=== PATIENT | male | born 1965 | race Caucasian/White ===

== ENCOUNTER 2017-05-28 14:02 | Inpatient (IN) | payer OTHER, SELFPAY ==
[2017-05-28] VITALS (19 sets, daily range): BP systolic 91–190; BP diastolic 53–118; PULSE 74–112; RESP 18–24; TEMP 36.7–37; O2SAT 92–99; BMI 26.6; BMI 28.0
--- NOTE | 2017-05-28 14:15 | XR_ITS ---
XR chest 2V PA and lateral chest CXR Ordering Physician: Tomas Schwartz MD Patient Age: 51 years: Male HISTORY: ITS.REASON: chest pain Chest pain. Headaches. TECHNIQUE: PA lateral chest COMPARISON :10/17/2007 CXR FINDINGS Diffuse interstitial edema/ infiltrate with interstitial thickens septal lines. malina B lines Suspect this reflects CHF. Appearance Could be due to acute IN as the heart is normal in size.. Also I would expect to see slightly greater cephalization of pulmonary vascular congestion that we do. Requires correlation with clinical picture. It difficult to fully exclude a diffuse interstitial infiltrate or pneumonitis alternatively.. Other is also a prominent right daria compared to prior studies but is most likely reflects the active process. Subtle blunting the posterior sulcus likely reflecting small developing pleural effusions. IMPRESSION- Diffuse interstitial infiltrate bilaterally and with septal lines. Appearance most likely reflecting interstitial pulmonary edema/due to acute CHF... Correlation required Asymmetric Fullness of the right daria with additional infiltrate seen right daria into the RML. Follow-up chest film important to exclude any additional process or lesion here..
[2017-05-28 14:26] LABS: Basophils % 0.3 % (0.1-2.0); Eosinophils # 0.3 K/mm3 (0.0-0.4); Eosinophils % 2.3 % (0.1-12.0); Hematocrit 46.7 % (42.0-52.0); Hemoglobin 15.2 g/dL (14.1-18.0); Lymphocytes # 2.1 K/mm3 (0.7-4.5); Lymphocytes % 15.4 K/mm3 (10-50); Mean Corpuscular HGB Conc 32.6 g/dL (31.8-35.4); Mean Corpuscular Volume 94.9 fl (80-94); Mean Platelet Volume 8.1 fl (7.4-10.4); Monocytes # 0.6 K/mm3 (0.1-1.0); Monocytes % 4.5 % (1.7-9.3); Neutrophils # 10.3 K/mm3 (1.8-7.8); Neutrophils % 77.5 % (37.0-80.0); Platelet Count 258 K/mm3 (142-424); Red Blood Count 4.92 M/mm3 (4.60-6.20); Red Cell Distribution Width 12.9 % (11.5-17.5); White Blood Count 13.3 K/mm3 (4.8-10.8)
[2017-05-28 14:34] LABS: Alanine Aminotransferase 22 U/L (12-78); Albumin Level 3.3 gm/dL (3.4-5.0); Albumin/Globulin Ratio 0.7 (1.1-1.8); Alkaline Phosphatase 89 U/L (46-116); Anion Gap 13.1 mEq/L (5-15); Aspartate Amino Transferase 28 U/L (15-37); Bilirubin,Total 0.5 mg/dL (0.2-1.0); Blood Urea Nitrogen 17 mg/dL (7-18); Calcium 8.8 mg/dL (8.5-10.1); Carbon Dioxide 28 mmol/L (21.0-32.0); Chloride 102 mmol/L (98-107); Creatinine Clearance Estimated 94 mg/ml (0-300); Creatinine,Serum 1.08 mg/dL (0.70-1.30); Estimated Glomerular Filt Rate > 60 ml/min (>60); GFR (African American) > 60 ML/MIN (>60); Globulin 4.5 gm/dl (1.3-3.2); Glucose 106 mg/dL (74-106); Potassium 4.1 mmoL/L (3.5-5.1); Sodium 139 mmol/L (136-145); Total Protein,Serum 7.8 gm/dL (6.4-8.2)
[2017-05-28 14:50] LABS: Troponin I 2.31 ng/ml (0.00-0.06)
--- NOTE | 2017-05-28 14:50 | PC.NURSE ---
LAB CALLED WITH CRITICAL TROPONIN OF 2.3, NOTIFIED
--- NOTE | 2017-05-28 14:56 | HMH.EDCP ---
ED Disposition Clinical Impression: ST elevation myocardial infarction (STEMI) Qualifiers: Involved coronary artery: LAD coronary artery Qualified Code(s): I21.02 - ST elevation (STEMI) myocardial infarction involving left anterior descending coronary artery Disposition: Admitted As Inpatient Condition on Discharge: Good - Critical Care Critical Care Time: No Attestation: On 05/28/17, the high probability of a clinically significant, sudden or life threatening deterioration of the following system(s) required my full and direct attention, intervention and personal management. The time I documented below is in addition to time spent performing reported procedures but includes the following listed in this critical care notation. Medical Decision Making Vital Signs: 05/28/17 14:05 Pulse Rate [Brachial] 112 H Respiratory Rate 22 Blood Pressure [Right Arm] 159/106 Blood Pressure Mean [Right Arm] 123 Blood Pressure Source [Right Arm] Automatic Cuff Blood Pressure Position [Right Arm] Supine 02 Sat by Pulse Oximetry 98 Oxygen Delivery Method Room Air - Lab Data Lab results reviewed: Yes: I reviewed the patient's lab results. Result diagrams: 05/28/17 14:10 05/28/17 14:10 Orders (Tests/Meds): ED MEDICATIONS Generic Name Dose Route Start Last Admin Trade Name Freq PRN Reason Stop Dose Admin Aspirin 81 mg 05/29/17 09:00 Aspirin 81mg Enteric Coated Tablet PO 06/28/17 08:59 DAILY TAWANA Atorvastatin Calcium 80 mg 05/28/17 21:00 Lipitor 40mg Tablet PO 06/27/17 20:59 HS TAWANA Diphenhydramine HCl 50 mg 05/28/17 17:22 05/28/17 17:28 Benadryl 50mg/1ml Vial IV 05/28/17 17:23 50 mg ONCE ONE Administration Fentanyl Citrate 50 mcg 05/28/17 17:22 05/28/17 17:29 Fentanyl 100mcg/2ml Vial IV 05/29/17 17:22 175 mcg Q3MINP PRN Administration Moderate to Severe Pain Fentanyl Citrate 25 mcg 05/28/17 17:22 Fentanyl 100mcg/2ml Vial IV 05/29/17 17:22 Q3MINP PRN Moderate to Severe Pain Flumazenil 0.2 mg 05/28/17 17:22 Romazicon 0.1mg/Ml 5ml Vial IV 05/28/17 23:00 NEEDED PRN Sedation Heparin Sodium (Porcine) 5,000 unit 05/28/17 17:22 05/28/17 17:32 Heparin Sodium 5,000 Units/Ml Vial IV 05/29/17 17:22 5,000 unit NEEDED PRN Administration Emergency Box Adjuster Leader Heparin Sodium/Sodium Chloride 3,000 unit 05/28/17 17:22 05/28/17 17:29 Heparin 1000 Units/500ml Ns (Director Of Distribution) IV 05/28/17 17:23 3,000 unit ONCE ONE Administration Iopamidol 280 ml 05/28/17 17:22 05/28/17 17:24 [id number]; 100ml Vial IV 05/28/17 17:23 280 ml ONCE ONE Administration Lidocaine HCl 10 ml 05/28/17 17:34 Lidocaine 1% 10ml Mdv SQ 05/28/17 17:35 ONCE ONE Midazolam HCl 1 mg 05/28/17 17:22 05/28/17 17:30 Midazolam 2mg/2ml Vial IV 05/29/17 17:22 9 mg Q3MINP PRN Administration Sedation Naloxone HCl 0.4 mg 05/28/17 17:22 Narcan 0.4mg/Ml Vial IV 05/29/17 17:22 Q5MINP PRN Decreased respirations Nitroglycerin 800 mcg 05/28/17 17:22 05/28/17 17:30 Nitroglycerin 800mcg/8ml Syr (Director Of Distribution) IV 05/29/17 17:22 800 mcg NEEDED PRN Administration Emergency Box Adjuster Leader Promethazine HCl 25 mg 05/28/17 17:34 05/28/17 17:41 Phenergan 25mg/Ml 1ml Vial IV 05/28/17 17:35 25 mg ONCE ONE Administration Sodium Chloride 10 ml 05/28/17 14:15 Saline Flush 10ml Syringe IV 06/27/17 14:14 NEEDED PRN Maintain IV Site Sodium Chloride 10 ml 05/28/17 17:22 Saline Flush 10ml Syringe IV 06/27/17 17:21 NEEDED PRN Maintain IV Site Sodium Chloride 25 ml 05/28/17 17:34 Sod Chloride 0.9% 25ml Bag IV 05/28/17 17:35 ONCE ONE Ticagrelor 90 mg 05/28/17 21:00 Brilinta 90mg Tablet PO 06/27/17 20:59 BID TAWANA Verapamil HCl 5 mg 05/28/17 17:22 05/28/17 17:29 Verapamil 2.5mg/Ml 2ml Vial IV 05/28/17 17
--- NOTE | 2017-05-28 15:02 | PC.NURSE ---
EKG sent to Dr. Bradshaw at this time
--- NOTE | 2017-05-28 15:03 | ED_ITS ---
ED Disposition Clinical Impression: ST elevation myocardial infarction (STEMI) Qualifiers: Involved coronary artery: LAD coronary artery Qualified Code(s): I21.02 - ST elevation (STEMI) myocardial infarction involving left anterior descending coronary artery Disposition: Admitted As Inpatient Condition on Discharge: Good - Critical Care Critical Care Time: No Attestation: On 05/28/17, the high probability of a clinically significant, sudden or life threatening deterioration of the following system(s) required my full and direct attention, intervention and personal management. The time I documented below is in addition to time spent performing reported procedures but includes the following listed in this critical care notation. Medical Decision Making Vital Signs: 05/28/17 14:05 Pulse Rate [Brachial] 112 H Respiratory Rate 22 Blood Pressure [Right Arm] 159/106 Blood Pressure Mean [Right Arm] 123 Blood Pressure Source [Right Arm] Automatic Cuff Blood Pressure Position [Right Arm] Supine 02 Sat by Pulse Oximetry 98 Oxygen Delivery Method Room Air - Lab Data Lab results reviewed: Yes: I reviewed the patient's lab results. Result diagrams: 05/28/17 14:10 05/28/17 14:10 Orders (Tests/Meds): ED MEDICATIONS Generic Name Dose Route Start Last Admin Trade Name Freq PRN Reason Stop Dose Admin Aspirin 81 mg 05/29/17 09:00 Aspirin 81mg Enteric Coated Tablet PO 06/28/17 08:59 DAILY TAWANA Atorvastatin Calcium 80 mg 05/28/17 21:00 Lipitor 40mg Tablet PO 06/27/17 20:59 HS TAWANA Diphenhydramine HCl 50 mg 05/28/17 17:22 05/28/17 17:28 Benadryl 50mg/1ml Vial IV 05/28/17 17:23 50 mg ONCE ONE Administration Fentanyl Citrate 50 mcg 05/28/17 17:22 05/28/17 17:29 Fentanyl 100mcg/2ml Vial IV 05/29/17 17:22 175 mcg Q3MINP PRN Administration Moderate to Severe Pain Fentanyl Citrate 25 mcg 05/28/17 17:22 Fentanyl 100mcg/2ml Vial IV 05/29/17 17:22 Q3MINP PRN Moderate to Severe Pain Flumazenil 0.2 mg 05/28/17 17:22 Romazicon 0.1mg/Ml 5ml Vial IV 05/28/17 23:00 NEEDED PRN Sedation Heparin Sodium (Porcine) 5,000 unit 05/28/17 17:22 05/28/17 17:32 Heparin Sodium 5,000 Units/Ml Vial IV 05/29/17 17:22 5,000 unit NEEDED PRN Administration Emergency Box Scoop Filler Heparin Sodium/Sodium Chloride 3,000 unit 05/28/17 17:22 05/28/17 17:29 Heparin 1000 Units/500ml Ns (Environmental Science Technician) IV 05/28/17 17:23 3,000 unit ONCE ONE Administration Iopamidol 280 ml 05/28/17 17:22 05/28/17 17:24 [id number]; 100ml Vial IV 05/28/17 17:23 280 ml ONCE ONE Administration Lidocaine HCl 10 ml 05/28/17 17:34 Lidocaine 1% 10ml Mdv SQ 05/28/17 17:35 ONCE ONE Midazolam HCl 1 mg 05/28/17 17:22 05/28/17 17:30 Midazolam 2mg/2ml Vial IV 05/29/17 17:22 9 mg Q3MINP PRN Administration Sedation Naloxone HCl 0.4 mg 05/28/17 17:22 Narcan 0.4mg/Ml Vial IV 05/29/17 17:22 Q5MINP PRN Decreased respirations Nitroglycerin 800 mcg 05/28/17 17:22 05/28/17 17:30 Nitroglycerin 800mcg/8ml Syr (Environmental Science Technician) IV 05/29/17 17:22 800 mcg NEEDED PRN Admin
--- NOTE | 2017-05-28 15:14 | PC.NURSE ---
SPOKE WITH . HE ADVISED TO NOTIFY PHARMACEUTICAL SALES. MIRACLE CORTES HAD PHARMACEUTICAL SALES PAGED
--- NOTE | 2017-05-28 15:26 | PC.NURSE ---
SPOKE WITH AND CONFIRMED MEDICINE
--- NOTE | 2017-05-28 15:38 | IR_ITS ---
CARDIAC CATHETERIZATION DATE OF CATHETERIZATION:05/28/2017 3:41 PM PROCEDURES: 1. Left heart catheterization 2. Left ventriculogram 3. Selective coronary angiogram 4. Drug-eluting stent deployment to the proximal and mid LAD 5. Drug-eluting stent deployment to the first diagonal artery 6. Drug-eluting stent deployment to the proximal and mid circumflex artery 7. Drug-eluting stent deployment to the proximal mid and distal dominant right coronary artery INDICATION FOR TEST: 1. Acute anterior ST elevation myocardial infarction 2. Cardiogenic shock 3. Multivessel coronary artery disease Informed consent was obtained prior to the procedure. COMPLICATIONS: None ESTIMATED BLOOD LOSS: Less than 10 ml. TECHNIQUE: One percent lidocaine used to anesthetize the right anterior aspect of the wrist. The right radial artery was accessed via the Seldinger technique. A 6 Tajik sheath was placed in the right radial artery. 2.5 mg of verapamil, 800 mcg of nitroglycerin and 5000 U Heparin were given through the arterial sheath. An Ikari right guide catheter was used intubate the right coronary artery and angiography was performed. Initially a choice PT wire was used to traverse the occlusion however after several seconds and attempts it was felt this was probably a chronic occlusion. Because of this an Ikari left guide catheter was quickly inserted into the left main artery and a choice PT wire was placed into the distal LAD. A 2 mm x 12 mm balloon was deployed in the proximal to mid LAD opening the subtotal occlusion. Following this a 2.5 x 22 mm resolute [place] stent was deployed at 22 brian reducing the stenosis to 0%. An additional wire was placed into the circumflex artery and a 2.5 x 26 mm resolute Garrett stent was deployed in the proximal to mid circumflex artery at 20 brian reducing the stenosis. A 2.5 x 6 mm noncompliant balloon was placed proximally and deployed at 22 brian on 2 occasions to post dilate. The choice PT wire in the LAD was pulled back and placed into the first diagonal artery were a 2 mm x 15 mm balloon was used to open the struts going in the large first diagonal artery. Following this a 2.25 x 38 mm resolute [place] stent was deployed at the ostium mid and distal segment at 18 brian reducing the stenoses to less than 10%. DAISHA I was present down both the LAD and diagonal artery before the procedure with DAISHA-3 flow down both vessels after the procedure. An additional 3 mm x 12 mm resolute [place] stent was in placed in the proximal LAD and deployed at 20 brian reducing the stenosis to 0%. After achieving excellent angiographic results with DAISHA-3 flow down the circumflex artery before and after the procedure the guide catheter was used intubate the right coronary artery. A fresh choice PT extra-support wire was placed proximally and a 2 mm x 12 mm balloon was used to push through the chronic occlusion. The balloon was deployed at 20 brian on 2 occasions. This restored DAISHA-3 flow from the right coronary artery which was initially DAISHA 0 flow. 2. 3 mm x 38 mm resolute Garrett stents were placed in the proximal mid and distal segment in a contiguous manner and deployed distally at 18 brian and then proximally at 20 brian. Excellent angiographic results were obtained. Patient initially received Brilinta in the emergency department. He received 9000 units of heparin in the emergency department as well as an additional 3000 units in the Set O Type Operator followed by an additional 3000 units of heparin. Measured ACT is were 274 seconds and then 239 seconds. 3000 units of heparin was administered after the 239 seconds ACT ANGIOGRAPHIC RESULTS: 1. The left main artery has an ostial 20% stenosis mid vessel 20% stenosis 2. The left anterior descending artery has proximal 60-70% stenosis and then a 99% subtotally o
--- NOTE | 2017-05-28 15:48 | PC.NURSE ---
SECOND EKG PERFORMED AND SENT TO DR. DEL CASTILLO. STEMI DECLARED PER ABUNDIO.
[2017-05-28 17:18] LABS: CATHL Activated Clotting Time 239 SEC (74-125)
[2017-05-28 17:20] LABS: CATHL Activated Clotting Time 274 SEC (74-125)
--- NOTE | 2017-05-28 18:36 | SUR.PHASEII ---
Addendum entered by Marizol Gayle RN 05/28/17 18:37: Original Note: REPORT GIVEN TO BARBARA MACIAS RN TRANSPORTED TO ICU VIA STRETCHER, VSS WITH NO C/O PAIN AT THIS TIME.
--- NOTE | 2017-05-28 22:38 | PC.NURSE ---
athletic monitor NV-0.16 QRS-0.08 QT-0.36 [address] AV BLOCK
[2017-05-29] VITALS (11 sets, daily range): BP systolic 97–117; BP diastolic 58–87; PULSE 75–91; RESP 18–22; TEMP 36.5–36.8; O2SAT 94–99
--- NOTE | 2017-05-29 00:37 | PC.NURSE ---
DONATION WORKER NJ-0.16 QRS-0.08 QT-0.36 PULSE 80 NSR
--- NOTE | 2017-05-29 01:34 | PC.NURSE ---
PT IS A&OX3. HE RECEIVED PRN MEDICATION FOR REPORTS OF CHEST TIGHTNESS AND SOA. HE IS RECEIVING O2 @ 2LPM N/C. HE IS S/P HEART CATH WITH RIGHT RADIAL DSG THAT IS C/D/I. VSS. CONTINUING TO MONITOR.
--- NOTE | 2017-05-29 04:32 | PC.NURSE ---
PT HAVING A LOT OF ANXIETY AND SHORTNESS OF BREATH,S.TETO,RN NOTIFIED AND ORDERS RECIEVED FOR LASIX 40MG IV ONE TIME ONLY AND MORPHINE 5MG IV EVERY 1 HOUR PRN ANXIETY OR SOB,ORDERS REPEATED AND VERIFIED
--- NOTE | 2017-05-29 08:22 | HMH.PHAVTE ---
[facility] Pharm[facility] VTE Monitoring - Patient Demographics Admission date: 05/29/17 Report Date: 05/29/17 Time: 08:22 Allergies/Adverse Reactions: hydrocodone [HYDROCODONE] Allergy (Unknown, Unverified 05/15/17 14:48) Height: 1.78 m Weight: 88.507 kg Patient Problems: Current Active Problems ST elevation myocardial infarction (STEMI) (Acute) - VTE Risk Labs: VTE Related Lab Results Hgb 15.2 g/dL (14.1-18.0) 05/28/17 14:10 Hct 46.7 % (42.0-52.0) 05/28/17 14:10 Plt Count 258 K/mm3 (142-424) 05/28/17 14:10 BUN 17 mg/dL (7-18) 05/28/17 14:10 Creatinine 1.08 mg/dL (0.70-1.30) 05/28/17 14:10 Estimated Creat Clear 94 mg/ml (0-300) 05/28/17 14:10 - Prophylaxis Types of VTE Prophylaxis: TEDS Knee High, Other Location of Applied Device: Not Applicable - VTE Diagnosis Confirmed Comment: FANG SCHILLING
--- NOTE | 2017-05-29 08:51 | HMH.CARDCON2 ---
History of Present Illness Consult date: 05/28/17 Requesting physician: Benjamin Hitchcock Consult reason: chest pain, shortness of breath Chief complaint: chest pain, SOA History of present illness: 51 yo WM seen in the ER for 1-2 hrs of sharp, left sided chest pain with associated SOA. Symptoms improved with NTG. Elevated troponin and ST elevation noted on EKG. Pt was taken to cardiac cathead worker for further treatment. Symptoms resolved after PCI and MARTITA placed. He is comfortable this AM. Review of Systems - *Cardiovascular Reports chest pain, Reports chest pain at rest, Reports chest pain with activity, Reports shortness of breath [facility] History Medical History: Denies:: Cancer, Diabetes Mellitus Type 1, Diabetes Mellitus Type 2, MRSA Amputation: No Fractures: No - *Social History Educational Level: Completed High School Smoking Status: Current every day smoker Tobacco Type: cigarettes # Packs/Day (cigarettes): 1 Alcohol Intake: never Occupational Status: employed - Psychiatric History Expresses thoughts of harming self/others: None Suicide Plan Description: No Plan *Family Hx:: Unable to obtain Meds Home Medications Medication Instructions Recorded Confirmed Type Amoxicillin/Potassium Clav 875 mg PO TID 05/29/17 05/29/17 History [Augmentin 875-125 Tablet] Fluticasone Propionate 1 spray INHALATION DAILY 05/29/17 05/29/17 History [Fluticasone Propionate] Allergies Allergy/AdvReac Type Severity Reaction Status Date / Time hydrocodone [HYDROCODONE] Allergy Unknown Verified 05/29/17 08:34 Exam Vital signs and Labs for Last 24 Hours: Temp Pulse Resp BP Pulse Ox 98.3 F 85 22 97/61 96 05/29/17 06:16 05/29/17 06:16 05/29/17 06:16 05/29/17 06:16 05/29/17 04:22 I & O for Last 24 hours: Intake & Output 05/26/17 05/27/17 05/28/17 05/29/17 11:59 11:59 11:59 11:59 Intake Total 10 1010 Output Total 1600 / 1600 Balance -1590 / -590 - *Routine Neck Exam Absent: JVD, carotid bruit - *Routine Respiratory Exam Comments: clear to auscultation - *Routine Cardiovascular Exam Present: RRR - *Routine Extremities Exam Absent: edema Results 05/28/17 14:10 05/28/17 14:10 Intake and Output 05/28/17 05/29/17 05/29/17 19:59 03:59 11:59 Intake Total 10 10 Output Total 1500 / 1500 100 / 100 Balance -1500 / -1500 -90 / -90 Intake: Intake, Other Amount 10 10 Output: Output, Urine Amount 1500 / 1500 100 / 100 Other: Intake, Other Source Saline Solution Number of Voids 1 1 Patient Weight 05/29/17 11:59 Weight 195 lb 2 oz EKG interpretations - Dysrhythmias Sinus rhythms and dysrhythmias: sinus tachycardia - Blocks, axis, hypertrophy, ST abn Repolarization changes or abnormalities: ST suggestive of injury Assessment and Plan (1) ST elevation myocardial infarction (STEMI) Current visit: Yes Status: Acute Qualifiers: Involved coronary artery: LAD coronary artery Qualified Code(s): I21.02 - ST elevation (STEMI) myocardial infarction involving left anterior descending coronary artery Category: Medical Code(s): I21.3 - ST elevation (STEMI) myocardial infarction of unspecified site s/p MARTITA to LAD and RCA. On DAPT (ASA and Brilinta). Will get echo today. Anticipate home tomorrow. Stop oxygen. OK to move continue in step down. (2) Tobacco use Current visit: Yes Status: Acute Category: Social Hx Code(s): Z72.0 - Tobacco use Nicotine patch (3) Ischemic cardiomyopathy Current visit: Yes Status: Acute Category: Medical Code(s): I25.5 - Ischemic cardiomyopathy Severe LV dysfunction noted on cardiac cath. Will obtain an echocardiogram to reassess left ventricular ejection fraction today. Patient may need a life vest. Attempt to start ALEXYS inhibitor and carvedilol as blood pressure tolerates.
--- NOTE | 2017-05-29 08:55 | P.CONS_ITS ---
History of Present Illness Consult date: 05/28/17 Requesting physician: Benjamin Hitchcock Consult reason: chest pain, shortness of breath Chief complaint: chest pain, SOA History of present illness: 51 yo WM seen in the ER for 1-2 hrs of sharp, left sided chest pain with associated SOA. Symptoms improved with NTG. Elevated troponin and ST elevation noted on EKG. Pt was taken to cardiac laboratory animal care veterinarian for further treatment. Symptoms resolved after PCI and MARTITA placed. He is comfortable this AM. Review of Systems - *Cardiovascular Reports chest pain, Reports chest pain at rest, Reports chest pain with activity , Reports shortness of breath [facility] History Medical History: Denies:: Cancer, Diabetes Mellitus Type 1, Diabetes Mellitus Type 2, MRSA Amputation: No Fractures: No - *Social History Educational Level: Completed High School Smoking Status: Current every day smoker Tobacco Type: cigarettes # Packs/Day (cigarettes): 1 Alcohol Intake: never Occupational Status: employed - Psychiatric History Expresses thoughts of harming self/others: None Suicide Plan Description: No Plan *Family Hx:: Unable to obtain Meds Home Medications Medication Instructions Recorded Confirmed Type Amoxicillin/Potassium Clav 875 mg PO TID 05/29/17 05/29/17 History [Augmentin 875-125 Tablet] Fluticasone Propionate 1 spray INHALATION DAILY 05/29/17 05/29/17 History [Fluticasone Propionate] Allergies Allergy/AdvReac Type Severity Reaction Status Date / Time hydrocodone [HYDROCODONE] Allergy Unknown Verified 05/29/17 08:34 Exam Vital signs and Labs for Last 24 Hours: Temp Pulse Resp BP Pulse Ox 98.3 F 85 22 97/61 96 05/29/17 06:16 05/29/17 06:16 05/29/17 06:16 05/29/17 06:16 05/29/17 04:22 I & O for Last 24 hours: Intake & Output 05/26/17 05/27/17 05/28/17 05/29/17 11:59 11:59 11:59 11:59 Intake Total 10 1010 Output Total 1600 / 1600 Balance -1590 / -590 - *Routine Neck Exam Absent: JVD, carotid bruit - *Routine Respiratory Exam Comments: clear to auscultation - *Routine Cardiovascular Exam Present: RRR - *Routine Extremities Exam Absent: edema Results 05/28/17 14:10 05/28/17 14:10 Intake and Output 05/28/17 05/29/17 05/29/17 19:59 03:59 11:59 Intake Total 10 Output Total 1500 / 1500 100 / 100 Balance -1500 / -1500 -90 / -90 Intake: Intake, Other Amount 10 10 Output: Output, Urine Amount 1500 / 1500 100 / 100 Other: Intake, Other Source Saline Solution Number of Voids 1 1 Patient Weight 05/29/17 11:59 Weight 195 lb 2 oz EKG interpretations - Dysrhythmias Sinus rhythms and dysrhythmias: sinus tachycardia - Blocks, axis, hypertrophy, ST abn Repolarization changes or abnormalities: ST suggestive of injury Assessment and Plan (1) ST elevation myocardial infarction (STEMI) Current visit: Yes Status: Acute Qualifiers: Involved coronary artery: LAD coronary artery Qualified Code(s): I21.02 - ST elevation (STEMI) myocardial infarction involving left anterior descending coronary artery Category: Medica
--- NOTE | 2017-05-29 09:41 | CA_ITS ---
PROCEDURE: 2-D M-mode and color Doppler study INDICATIONS FOR THE TEST: Chest pain+ COPD Heart Murmur Tobacco Smoking+ Palpitations Fatigue Syncope Edema Hypertension Diabetes Mellitus Rheumatic Fever SOB+ALFRED Obesity Hyperlipidemia Family History HD+ Additional History STEMI 05/28/17, stents PATIENT INFORMATION HEIGHT: 70 WEIGHT:195 GENDER: Male B/P: 97/61 2-D/M-MODE INTERPRETATION: 2-D MEASUREMENTS OBSERVED VALUES IN CMS Right Ventricular Dimension (RVDd) 2.1 Interventricular Septum (Thickness)(IVsd) 1.1 Left Ventricular Internal Dimensions(LVIDd) 5.2 Left Ventricular Posterior Wall (Thickness)(LVPWd) 1.3 Aortic Root 2.8 Aortic Cusp Separation 2.2 Left Atrial Dimensions (LAD) 4.2 2D 1. Left atrium is mildly enlarged, left ventricle is normal size, there is mild concentric left ventricular hypertrophy, visually estimated ejection fraction approximately 30%, there is marked hypokinesis involving the basal septum, inferior wall, inferolateral, posterolateral and apical wall. 2. The right atrium and right ventricle are normal size and contractility. 3. The aortic valve is minimally thickened and fibrosed. 4. The mitral and tricuspid valve leaflets are minimally thickened. 5. The pulmonic valve is poorly visualized. 6. No significant pericardial effusion noted. DOPPLER INTERROGATION: Doppler interrogation of the aortic, mitral and tricuspid valvular presence of moderate to severe mitral, and mild tricuspid regurgitation, tricuspid regurgitant jet velocity is insufficient for calculation of the right ventricular systolic pressure, grade 1 diastolic dysfunction seen with tissue Doppler evidence of raised left atrial pressure. CONCLUSION: 1. Enlarged left atrium, normal left ventricular size, mild concentric left ventricular hypertrophy, visually estimated ejection fraction 30% with multiple segmental wall motion abnormality described above 2. Moderate to severe mitral and mild tricuspid regurgitation, grade 1 diastolic dysfunction seen with tissue Doppler evidence of raised left atrial pressure. 3. No significant pericardial effusion noted.
--- NOTE | 2017-05-29 10:40 | PC.NURSE ---
OF 899 PER HARI FELICIANO IT IS OKAY TO TAKE PATIENT OUT OF STEPDOWN AND MAKE THEM ACUTE
--- NOTE | 2017-05-29 18:58 | PC.NURSE ---
PATIENT HAS HAD A GOOD DAY. SOME COMPLAINTS OF A HEADACHE. SISTER CONCERNED ABOUT PATIENT GOING HOME ALONE, STATING SHE FEELS HE IS STRUGGLING TO BREATHE. PATIENT SATS ARE GOOD, HAS NOT COMPLAINED TO STAFF OF SHORTNESS OF BREATH. LIFE VEST PAPERWORK ON CHART. KNOWS TO NOT DO ANY PHYSICAL ACTIVITY FOR 40 DAYS. HAS BEEN UP WALKING TO BATHROOM AND IN [place]AG[place]O. VSS WILL CONTINUE TO MONITOR.
[2017-05-30] VITALS (8 sets, daily range): BP systolic 97–129; BP diastolic 69–74; PULSE 60–88; RESP 16–18; TEMP 36.6–36.8; O2SAT 95–97
--- NOTE | 2017-05-30 03:48 | PC.NURSE ---
PT STABLE. AT 0345 PTs BP NOTED TO BE 80/50, BP REASSESSED AT 0350 AND IS 97/74. PT DENIES AND COMPLAINTS ASSOCIATED WITH HYPOTENSION. DENIES CP AND SOA. WILL CONTINUE TO MONITOR AND CONTACT MD IF NEEDED.
--- NOTE | 2017-05-30 12:48 | HMH.CARDPN2 ---
Subjective PN (PG) Date: 05/30/17 Time: 08:15 Principal diagnosis: STEMI Interval history: Feeling better. No chest pain or SOA with ambulation in room and hallway. No significant arrhythmias on telemetry. Ready to go home after LifeVest placed. PN Exam ([facility]) Vital signs: Temp Pulse Resp BP Pulse Ox 98.0 F 83 18 129/73 97 05/30/17 11:51 05/30/17 11:51 05/30/17 11:51 05/30/17 11:51 05/30/17 11:51 - Constitutional no acute distress - Routine Respiratory Exam Present: CTA bilaterally - Routine Cardiovascular Exam Present: RRR A/P Progress Note ([facility]) (1) ST elevation myocardial infarction (STEMI) Status: Acute Assessment and plan: Continue DAPT due to multivessel MARTITA placed. Starting and titrating ALEXYS and Coreg as BP tolerates. Current Visit: Yes (2) Tobacco use Status: Chronic Assessment and plan: Strongly urged cessation. Will help with patches and wellbutrin or Chantix if needed. Current Visit: Yes (3) Ischemic cardiomyopathy Status: Acute Assessment and plan: EF 20-30% on both echo and cath. LifeVest for now with plans to repeat non-invasive assessment in 40 days to decide on AICD. Current Visit: Yes - Time Spent With Patient less than 15 minutes
--- NOTE | 2017-05-30 12:51 | P.PN_ITS ---
Subjective PN (PG) Date: 05/30/17 Time: 08:15 Principal diagnosis: STEMI Interval history: Feeling better. No chest pain or SOA with ambulation in room and hallway. No significant arrhythmias on telemetry. Ready to go home after LifeVest placed. PN Exam ([facility]) Vital signs: Temp Pulse Resp BP Pulse Ox 98.0 F 83 18 129/73 97 05/30/17 11:51 05/30/17 11:51 05/30/17 11:51 05/30/17 11:51 05/30/17 11:51 - Constitutional no acute distress - Routine Respiratory Exam Present: CTA bilaterally - Routine Cardiovascular Exam Present: RRR A/P Progress Note ([facility]) (1) ST elevation myocardial infarction (STEMI) Status: Acute Assessment and plan: Continue DAPT due to multivessel MARTITA placed. Starting and titrating ALEXYS and Coreg as BP tolerates. Current Visit: Yes (2) Tobacco use Status: Chronic Assessment and plan: Strongly urged cessation. Will help with patches and wellbutrin or Chantix if needed. Current Visit: Yes (3) Ischemic cardiomyopathy Status: Acute Assessment and plan: EF 20-30% on both echo and cath. LifeVest for now with plans to repeat non- invasive assessment in 40 days to decide on AICD. Current Visit: Yes - Time Spent With Patient less than 15 minutes
--- NOTE | 2017-05-30 13:11 | HMH.DCSUM ---
General - General Admission date: 05/28/17 Discharge date: 05/30/17 HPI HPI: 51 yo WM admitted through ER for STEMI. 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 Severe reduced LVEF in the 20% range noted. Started on DAPT along with coreg and MANAN as BP tolerated. Statin therapy started. Echo confirmed EF of 20-30%. LifeVest fit prior to discharge. Pt did well during his stay. Tobacco cessation strongly encouraged. CHF noted on CXR improving at time of discharge. Home meds to include Metoprolol 12.5 mg BID Lisinopril 2.5 mg daily Atorvastatin 40 mg daily ASA 81 mg daily Brilinta 90 mg BID Spironolactone 25 mg daily Results Completed studies during hospitalization [Text1]: Cardiac cath IMPRESSION: 1. Critical three-vessel coronary artery disease as described above accompanied by cardiogenic shock and severely reduced ejection fraction 2. Successful revascularization of the proximal and mid LAD. Severe disease followed by subtotal occlusion reduced to 0% with 2 stents in the LAD 3. Subtotal occlusion of the large proximal first diagonal artery with successful revascularization with a single drug-eluting stent reducing the stenosis to 0% 4. Severe to critical disease in a large first obtuse marginal artery with successful stenting of the proximal circumflex artery and obtuse marginal artery 90% stenosis reduced to 0% with 1 drug-eluting stent 5. Persistent chronic total occlusion of a smaller second obtuse marginal artery 6. Apparent chronic total occlusion of the proximal dominant right coronary artery with scant collateralization from the LAD with successful percutaneous revascularization and reconstruction of the entire proximal mid and distal right coronary artery, 100% stenosis reduced to 0% with 2 large drug-eluting stents 7. Severely reduced ejection fraction 8. Severely elevated LVEDP PLAN: 1. Brilinta 90 twice a day and aspirin 81 mg daily 2. LDL less than 55 3. Manan inhibitors and carvedilol once hemodynamically stable 4. Complete avoidance of tobacco products 5. Cardiac rehabilitation 6. Echocardiogram will be obtained 7. Patient requires a lifevest prior to discharge home 8. Rather than giving patient diuresis I would prefer afterload reducing the ventricle with manan inhibitors. He should have improvement in his hemodynamics and should diuresis without the addition of Loop diuretics initially. Prior to discharge home patient will likely require low dose Lasix and low-dose spironolactones however it is more important for patient to have manan inhibitors prior to diuretics Echo report pending but confirmed EF of 20-30% DS: Diagnosis - Discharge Diagnosis (1) ST elevation myocardial infarction (STEMI) Start date: 05/28/17 Status: Acute (2) Tobacco use Status: Chronic (3) Ischemic cardiomyopathy Start date: 05/28/17 Status: Acute Meds Home Medications Medication Instructions Recorded Confirmed Type Amoxicillin/Potassium Clav 875 mg PO TID 05/29/17 05/29/17 History [Augmentin 875-125 Tablet] Fluticasone Propionate 1 spray INHALATION DAILY 05/29/17 05/29/17 History [Fluticasone Propionate] Allergies Allergy/AdvReac Type Severity Reaction Status Date / Time hydrocodone [HYDROCODONE] Allergy Unknown Verified 05/29/17 08:34 Disposition Disposition: Home, Self-Care
--- NOTE | 2017-05-30 13:32 | P.DS_ITS ---
General - General Admission date: 05/28/17 Discharge date: 05/30/17 HPI HPI: 51 yo WM admitted through ER for STEMI. 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 Severe reduced LVEF in the 20% range noted. Started on DAPT along with coreg and MANAN as BP tolerated. Statin therapy started. Echo confirmed EF of 20-30%. LifeVest fit prior to discharge. Pt did well during his stay. Tobacco cessation strongly encouraged. CHF noted on CXR improving at time of discharge. Home meds to include Metoprolol 12.5 mg BID Lisinopril 2.5 mg daily Atorvastatin 40 mg daily ASA 81 mg daily Brilinta 90 mg BID Spironolactone 25 mg daily Results Completed studies during hospitalization [Text1]: Cardiac cath IMPRESSION: 1. Critical three-vessel coronary artery disease as described above accompanied by cardiogenic shock and severely reduced ejection fraction 2. Successful revascularization of the proximal and mid LAD. Severe disease followed by subtotal occlusion reduced to 0% with 2 stents in the LAD 3. Subtotal occlusion of the large proximal first diagonal artery with successful revascularization with a single drug-eluting stent reducing the stenosis to 0% 4. Severe to critical disease in a large first obtuse marginal artery with successful stenting of the proximal circumflex artery and obtuse marginal artery 90% stenosis reduced to 0% with 1 drug-eluting stent 5. Persistent chronic total occlusion of a smaller second obtuse marginal artery 6. Apparent chronic total occlusion of the proximal dominant right coronary artery with scant collateralization from the LAD with successful percutaneous revascularization and reconstruction of the entire proximal mid and distal right coronary artery, 100% stenosis reduced to 0% with 2 large drug-eluting stents 7. Severely reduced ejection fraction 8. Severely elevated LVEDP PLAN: 1. Brilinta 90 twice a day and aspirin 81 mg daily 2. LDL less than 55 3. Manan inhibitors and carvedilol once hemodynamically stable 4. Complete avoidance of tobacco products 5. Cardiac rehabilitation 6. Echocardiogram will be obtained 7. Patient requires a lifevest prior to discharge home 8. Rather than giving patient diuresis I would prefer afterload reducing the ventricle with manan inhibitors. He should have improvement in his hemodynamics and should diuresis without the addition of Loop diuretics initially. Prior to discharge home patient will likely require low dose Lasix and low-dose spironolactones however it is more important for patient to have manan inhibitors prior to diuretics Echo report pending but confirmed EF of 20-30% DS: Diagnosis - Discharge Diagnosis (1) ST elevation myocardial infarction (STEMI) Start date: 05/28/17 Status: Acute (2) Tobacco use Status: Chronic (3) Ischemic cardiomyopathy Start date: 05/28/17 Status: Acute Meds Home Medications Medication Instructions Recorded C
--- NOTE | 2017-05-30 13:46 | XR_ITS ---
XR chest 2V HISTORY: Follow-up CHF ITS.REASON: follow up on CHF ORDERING PHYSICIAN: Aayush Bradshaw MD PATIENT AGE: 51 years COMPARISON: 05/28/2017 FINDINGS: Mild cardiomegaly with pulmonary venous congestion and interstitial edema is once again consistent with congestive heart failure which is slightly improved. There are trace bilateral effusions. There is a granuloma in the right upper lobe. No acute bony anomalies. IMPRESSION: Persistent but improving congestive heart failure
--- NOTE | 2017-05-30 15:16 | CARE MANAGER ---
Wesley Arredondo was admitted ACUTE with a diagnosis ACUTE VT. His treatment plan will include serial enzymes, EKG and investigative studies. CM staff will follow and assist.
--- NOTE | 2017-05-30 16:15 | PC.NURSE ---
LIFE VEST PLACED ON PATIENT AND INSTURICTION GIVEN. PER HARI FELICIANO PRESCRIPTIONS CALLED IN TO CLINIC PHARMACY FOR PATIENT. PATIENT UNDERSTANDS ALL TEACHING. WALKED DOWN TO PHARMACY WHERE RIDE WAS WAITING
--- NOTE | 2017-06-14 10:45 | PC.NURSE ---
post procedure call made, pt did not answer and unable to leave message
== END 2017-05-30 16:15 | disposition home or self-care (01) | DRG 246 ==
LOC: ER 15:43 → CATHLAB 15:57 → ICU 19:00
PROVIDERS: Admitting Provider Internal Medicine; Emergency Provider Family Medicine; Visit Provider Internal Medicine
PROC: 027237Z Dilation of Coronary Artery, Three Arteries with Four or More Drug-eluting Intraluminal Devices, Percutaneous Approach (ICD-10-PCS; principal; 2017-05-28 15:45)
DX: I21.02 ST elevation (STEMI) myocardial infarction involving left anterior descending coronary artery (principal); R57.0 Cardiogenic shock; I25.119 Atherosclerotic heart disease of native coronary artery with unspecified angina pectoris; Z72.0 Tobacco use; I25.5 Ischemic cardiomyopathy
CPT/HCPCS: 71046; 80053; 84484; 85025; 85347; 92928; 92929; 93005; 93306; 93458; 99152; 99153; 99282; C1725; C1769; C1876; C9600; C9601; J1644; Q9967

== ENCOUNTER 2017-06-07 09:03 | Outpatient (RCR) | payer OTHER, SELFPAY | END 2017-06-07 09:05 | disposition home or self-care (01) | LOC: PT 09:03 | PROVIDERS: PCP Emergency Medicine; Visit Provider Internal Medicine | DX: I21.3 ST elevation (STEMI) myocardial infarction of unspecified site (principal) | CPT/HCPCS: 93798 ==

== ENCOUNTER 2017-06-15 16:38 | Emergency (ER) | payer OTHER, SELFPAY ==
[2017-06-15 16:39] VITALS: BP 149/90; PULSE 74; PULSE 80; RESP 18; RESP 75; TEMP 36.9; O2SAT 97; O2SAT 98; BMI 27.2
--- NOTE | 2017-06-15 16:46 | XR_ITS ---
XR chest portable HISTORY: ITS.REASON: CHEST PAIN ORDERING PHYSICIAN: Meg Aguilar MD PATIENT AGE: 51 years COMPARISON: 05/30/2017 FINDINGS: There is overlying monitor artifact Normal heart size. No evidence of CHF. Lungs are clear bilaterally. No acute bony anomalies. IMPRESSION: No acute finding.
[2017-06-15 16:55] VITALS: PULSE 73
--- NOTE | 2017-06-15 17:00 | HMH.EDCP ---
ED Disposition Clinical Impression: Atypical chest pain Disposition: Home, Self-Care Condition on Discharge: Good Instructions: DI for Atypical Chest Pain Additional Instructions: Follow up with Dr. Bradshaw prior to returning to cardiac rehab; call for appointment in 1-3 days. Referrals: Provider,MD Andre [Primary Care Provider] - Aayush Bradshaw MD [Staff Physician] - - Critical Care Critical Care Time: No Attestation: On 06/15/17, the high probability of a clinically significant, sudden or life threatening deterioration of the following system(s) required my full and direct attention, intervention and personal management. The time I documented below is in addition to time spent performing reported procedures but includes the following listed in this critical care notation. Medical Decision Making - Medical Records Medical records reviewed: Yes: I reviewed the patient's medical records. MR Comment: Dr. Bradshaw reviewed patient's medical records by telephone. Date stents were placed with very good results on May 28, 2017. Vital Signs: 06/15/17 16:39 06/15/17 16:55 06/15/17 17:09 Temperature 98.5 F Temperature Source Oral Pulse Rate 73 Pulse Rate [Right Brachial] 74 77 Respiratory Rate 18 18 Blood Pressure [Right Arm] 149/90 101/71 Blood Pressure Mean [Right Arm] 109 81 Blood Pressure Source [Right Arm] Automatic Cuff Automatic Cuff Blood Pressure Position [Right Arm] Supine Supine 02 Sat by Pulse Oximetry 97 97 Oxygen Delivery Method Room Air Room Air 06/15/17 17:57 Temperature Temperature Source Pulse Rate Pulse Rate [Right Brachial] 85 Respiratory Rate 16 Blood Pressure [Right Arm] 126/84 Blood Pressure Mean [Right Arm] 98 Blood Pressure Source [Right Arm] Automatic Cuff Blood Pressure Position [Right Arm] Supine 02 Sat by Pulse Oximetry 98 Oxygen Delivery Method Room Air - Lab Data Lab Results 06/15/17 16:45: WBC 8.4, RBC 5.04, Hgb 15.7, Hct 46.8, MCV 92.7, MCH 31.0, MCHC 33.5, RDW 12.5, Plt Count 262, MPV 7.4, Neut % (Auto) 52.7, Lymph % (Auto) 36.4, [place] % (Auto) 6.6, Eos % (Auto) 3.6, Baso % (Auto) 0.8, Neut # (Auto) 4.4, Lymph # (Auto) 3.1, [place] # (Auto) 0.6, Eos # (Auto) 0.3, Baso # (Auto) 0.1 06/15/17 16:45: Sodium 138, Potassium 4.2, Chloride 101, Carbon Dioxide 28, Anion Gap 13.2, BUN 19 H, Creatinine 1.08, Estimated Creat Clear 96, Estimated GFR 72, Est GFR ( Amer) 87, Glucose 98, Calcium 9.0, Total Bilirubin 0.3, AST 24, ALT 40, Alkaline Phosphatase 82, Total Protein 7.9, Albumin 3.6, Globulin 4.3 H, Albumin/Globulin Ratio 0.8 L 06/15/17 16:45: Total Creatine Kinase 55, CK-MB (CK-2) < 0.5, CK-MB (CK-2) Rel Index 0.9, Troponin I < 0.02 06/15/17 16:45: B-Natriuretic Peptide 175 H Result diagrams: 06/15/17 16:45 06/15/17 16:45 Orders (Tests/Meds): ED MEDICATIONS Discontinued Medications Generic Name Dose Route Start Last Admin Trade Name Freq PRN Reason Stop Dose Admin Furosemide 20 mg 06/15/17 17:07 06/15/17 17:12 Lasix 20mg/2ml Vial IV 06/15/17 17:08 20 mg ONCE ONE Administration Nitroglycerin 0.4 mg 06/15/17 17:06 06/15/17 17:12 Nitrostat 0.4mg Sl Tablet SL 06/15/17 17:07 0.4 mg ONCE ONE Administration ORDERS Category Date Time Status ECG Request by /Latia Stat Y 06/15/17 16:47 Ordered - Radiology Data #1 Image(s): Chest Image Reviewed: Yes I reviewed the patient's radiology results, Yes I have reviewed radiologist's interpretation Preliminary Findings: Normal/NAD, No Infiltrates Seen, Normal Lung Inflation Danny, Normal Heart Size - ECG Data Tracing #1 I reviewed this ECG and interpreted as documented below: (Sinus rhythm rate of 71. CO noted. T Wave inversion noted in V5 and V6. Also noted in 3 and aVF.) Sinus rhythm rate of 71. Wave inversion noted in V5 and V6 which were not appreciated on 05/28/2017, Dr. Bradshaw consulted. He reviewed the EKG and states consistent with ol
[2017-06-15 17:01] LABS: Basophils # 0.1 K/mm3 (0-0.2); Basophils % 0.8 % (0.1-2.0); Eosinophils # 0.3 K/mm3 (0.0-0.4); Eosinophils % 3.6 % (0.1-12.0); Hematocrit 46.8 % (42.0-52.0); Hemoglobin 15.7 g/dL (14.1-18.0); Lymphocytes # 3.1 K/mm3 (0.7-4.5); Lymphocytes % 36.4 K/mm3 (10-50); Mean Corpuscular HGB Conc 33.5 g/dL (31.8-35.4); Mean Corpuscular Volume 92.7 fl (80-94); Mean Platelet Volume 7.4 fl (7.4-10.4); Monocytes # 0.6 K/mm3 (0.1-1.0); Monocytes % 6.6 % (1.7-9.3); Neutrophils # 4.4 K/mm3 (1.8-7.8); Neutrophils % 52.7 % (37.0-80.0); Platelet Count 262 K/mm3 (142-424); Red Blood Count 5.04 M/mm3 (4.60-6.20); Red Cell Distribution Width 12.5 % (11.5-17.5); White Blood Count 8.4 K/mm3 (4.8-10.8)
--- NOTE | 2017-06-15 17:05 | ED_ITS ---
ED Disposition Clinical Impression: Atypical chest pain Disposition: Home, Self-Care Condition on Discharge: Good Instructions: DI for Atypical Chest Pain Additional Instructions: Follow up with Dr. Bradshaw prior to returning to cardiac rehab; call for appointment in 1-3 days. Referrals: Provider,MD Andre [Primary Care Provider] - Aayush Bradshaw MD [Staff Physician] - - Critical Care Critical Care Time: No Attestation: On 06/15/17, the high probability of a clinically significant, sudden or life threatening deterioration of the following system(s) required my full and direct attention, intervention and personal management. The time I documented below is in addition to time spent performing reported procedures but includes the following listed in this critical care notation. Medical Decision Making - Medical Records Medical records reviewed: Yes: I reviewed the patient's medical records. MR Comment: Dr. Bradshaw reviewed patient's medical records by telephone. Date stents were placed with very good results on May 28, 2017. Vital Signs: 06/15/17 16:39 06/15/17 16:55 06/15/17 17:09 Temperature 98.5 F Temperature Source Oral Pulse Rate 73 Pulse Rate [Right Brachial] 74 77 Respiratory Rate 18 18 Blood Pressure [Right Arm] 149/90 101/71 Blood Pressure Mean [Right Arm] 109 81 Blood Pressure Source [Right Arm] Automatic Cuff Automatic Cuff Blood Pressure Position [Right Arm] Supine Supine 02 Sat by Pulse Oximetry 97 97 Oxygen Delivery Method Room Air Room Air 06/15/17 17:57 Temperature Temperature Source Pulse Rate Pulse Rate [Right Brachial] 85 Respiratory Rate 16 Blood Pressure [Right Arm] 126/84 Blood Pressure Mean [Right Arm] 98 Blood Pressure Source [Right Arm] Automatic Cuff Blood Pressure Position [Right Arm] Supine 02 Sat by Pulse Oximetry 98 Oxygen Delivery Method Room Air - Lab Data Lab Results 06/15/17 16:45: WBC 8.4, RBC 5.04, Hgb 15.7, Hct 46.8, MCV 92.7, MCH 31.0, MCHC 33.5, RDW 12.5, Plt Count 262, MPV 7.4, Neut % (Auto) 52.7, Lymph % (Auto) 36.4 , [place] % (Auto) 6.6, Eos % (Auto) 3.6, Baso % (Auto) 0.8, Neut # (Auto) 4.4, Lymph # (Auto) 3.1, [place] # (Auto) 0.6, Eos # (Auto) 0.3, Baso # (Auto) 0.1 06/15/17 16:45: Sodium 138, Potassium 4.2, Chloride 101, Carbon Dioxide 28, Anion Gap 13.2, BUN 19 H, Creatinine 1.08, Estimated Creat Clear 96, Estimated GFR 72, Est GFR ( Amer) 87, Glucose 98, Calcium 9.0, Total Bilirubin 0.3 , AST 24, ALT 40, Alkaline Phosphatase 82, Total Protein 7.9, Albumin 3.6, Globulin 4.3 H, Albumin/Globulin Ratio 0.8 L 06/15/17 16:45: Total Creatine Kinase 55, CK-MB (CK-2) < 0.5, CK-MB (CK-2) Rel Index 0.9, Troponin I < 0.02 06/15/17 16:45: B-Natriuretic Peptide 175 H Result diagrams: 06/15/17 16:45 06/15/17 16:45 Orders (Tests/Meds): ED MEDICATIONS Discontinued Medications Generic Name Dose Route Start Last Admin Trade Name Benjamin PRN Reason Stop Dose Admin Furosemide 20 mg 06/15/17 17:07 06/15/17 17:12 Lasix 20mg/2ml Vial IV 06/15/17 17:08 20 mg ONCE ONE Administration Nitroglycerin 0.4 mg 06/15/17 17:06 06/15/17 17:12 Nitrostat 0.4mg Sl Tablet SL 06/15/17 17:07 0.4 mg ONCE ONE Administration ORDERS Category D
[2017-06-15 17:09] VITALS: BP 101/71; PULSE 77; RESP 18; O2SAT 97
[2017-06-15 17:28] LABS: Alanine Aminotransferase 40 U/L (12-78); Albumin Level 3.6 gm/dL (3.4-5.0); Albumin/Globulin Ratio 0.8 (1.1-1.8); Alkaline Phosphatase 82 U/L (46-116); Anion Gap 13.2 mEq/L (5-15); Aspartate Amino Transferase 24 U/L (15-37); Bilirubin,Total 0.3 mg/dL (0.2-1.0); Blood Urea Nitrogen 19 mg/dL (7-18); Carbon Dioxide 28 mmol/L (21.0-32.0); Chloride 101 mmol/L (98-107); Creatinine Clearance Estimated 96 mL/min (0-300); Creatinine,Serum 1.08 mg/dL (0.70-1.30); Estimated Glomerular Filt Rate 72 ml/min (>60); GFR (African American) 87 ML/MIN (>60); Globulin 4.3 gm/dl (1.3-3.2); Glucose 98 mg/dL (74-106); Potassium 4.2 mmoL/L (3.5-5.1); Sodium 138 mmol/L (136-145); Total Protein,Serum 7.9 gm/dL (6.4-8.2)
[2017-06-15 17:31] LABS: Creatine Kinase 55 U/L (39-308); Troponin I < 0.02 ng/ml (0.00-0.06)
[2017-06-15 17:33] LABS: CKMB Relative Index 0.9 U/L (0-4.0); Creatine Kinase MB < 0.5 mg/ml (0.0-3.6)
[2017-06-15 17:57] VITALS: BP 126/84; PULSE 85; RESP 16; O2SAT 98
[2017-06-15 18:38] VITALS: BP 124/84; PULSE 97; RESP 16; TEMP 36.5; O2SAT 97
== END 2017-06-15 18:44 | disposition home or self-care (01) ==
PROVIDERS: Emergency Provider Emergency Medicine
DX: R07.89 Other chest pain (principal); I25.2 Old myocardial infarction; Z95.5 Presence of coronary angioplasty implant and graft; Z79.82 Long term (current) use of aspirin; Z79.899 Other long term (current) drug therapy; I11.0 Hypertensive heart disease with heart failure; I50.9 Heart failure, unspecified; E78.5 Hyperlipidemia, unspecified; Z87.891 Personal history of nicotine dependence; Z88.5 Allergy status to narcotic agent
CPT/HCPCS: 71045; 80053; 82550; 82553; 83880; 84484; 85025; 93005; 93041; 96374; 99284

== ENCOUNTER → 2017-07-06 08:34 | Outpatient (CLI) | payer OTHER, SELFPAY ==
--- NOTE | 2017-07-06 08:39 | CA_ITS ---
PROCEDURE: 2-D M-mode and color Doppler study INDICATIONS FOR THE TEST: Chest pain COPD Heart Murmur Tobacco SmokingEX Palpitations Fatigue Syncope Edema HypertensionXDiabetes Mellitus Rheumatic Fever SOB ALFRED Obesity HyperlipidemiaX Family History HD Additional History CAD,LIFE VEST PATIENT INFORMATION HEIGHT: 70 WEIGHT:190 GENDER: Male B/P:120/80 2-D/M-MODE INTERPRETATION: 2-D MEASUREMENTS OBSERVED VALUES IN CMS Right Ventricular Dimension (RVDd) 2.7 Interventricular Septum (Thickness)(IVsd) .9 Left Ventricular Internal Dimensions(LVIDd) 5.7 Left Ventricular Posterior Wall (Thickness)(LVPWd) .9 Aortic Root 3.5 Aortic Cusp Separation 1.8 Left Atrial Dimensions (LAD) 3.5 2D 1. Left atrium is qualitatively mildly enlarged, left ventricle is normal size, there is no concentric left ventricular hypertrophy, visually estimated ejection fraction approximately 45%, there appears to be mild to moderate hypokinesis involving the mid to distal septum, anteroapical and apical wall. 2. The right atrium and right ventricle are normal size and contractility. 3. The aortic valve is minimally thickened and fibrosed. 4. The mitral and tricuspid valve leaflets are minimally thickened. 5. The pulmonic valve is poorly visualized. 6. No significant pericardial effusion noted. DOPPLER INTERROGATION: Doppler interrogation of the aortic, mitral and tricuspid valvular presence of mild mitral and tricuspid regurgitation, tricuspid regurgitant jet velocity is insufficient for calculation of the right ventricular systolic pressure, grade 1 diastolic dysfunction seen without tissue Doppler evidence of raised left atrial pressure. CONCLUSION: 1. Mildly enlarged left atrium, normal left ventricular size, visually estimated ejection fraction 45% with segmental wall motion abnormality described above, grade 1 diastolic dysfunction seen without tissue Doppler evidence of raised left atrial pressure. 2. Mild mitral and tricuspid regurgitation 3. No significant pericardial effusion noted.
== END ==
PROVIDERS: Visit Provider Internal Medicine
DX: I25.10 Atherosclerotic heart disease of native coronary artery without angina pectoris (principal); E78.5 Hyperlipidemia, unspecified; I25.5 Ischemic cardiomyopathy
CPT/HCPCS: 93306

== ENCOUNTER → 2017-10-29 06:14 | Outpatient (CLI) | payer OTHER, SELFPAY ==
--- NOTE | 2017-10-29 06:17 | NM_ITS ---
SPECT MYOCARDIAL PERFUSION SCAN, REST AND STRESS: EXERCISE STRESS: [facility] REVIEW QGS EF AND WALL MOTION EVALUATION: QPS - PERFUSION EVALUATION: HISTORY: Fatigue, CAD, Hx of [place], HTN PROCEDURE: Rest imaging performed after administration of10.79 millicuries Tc MIBI. Dose administered at6:30 a.m., with imaging thereafter. Stress imaging was then performed [id number] minutes 30 seconds of exercise stress. The patient achieved a heart [id number] with projected heart rate of141 . Resting BP139/80 with stress 170/78. At maximum exercise stress,31.8 millicuries Tc MIBI administered at8:10 a.m. with [id number] minutes thereafter. FINDINGS: Perfusion Evaluation: The single slice spect images as well as the [facility] bull's-eye data summary were reviewed. Wall Motion and Ejection Fraction Evaluation: Gated SPECT review and analysis used to evaluate these features. There is a 47 % left ventricular ejection fraction. There seems to be good wall motion Decreased myocardial activity in the inferior wall with both stress and rest. Gated images calculated ejection fraction of 47% with normal wall motion IMPRESSION: Previous nontransmural myocardial infarction involving the inferior wall without evidence of reversible ischemia accompanied by normal ejection fraction normal wall motion
--- NOTE | 2017-10-29 09:33 | HMH.ITSHM ---
LISINOPRIL METOPROLOL BRILINTA SPIRONOLACTONE ASA ATORVASTATIN
== END ==
PROVIDERS: Visit Provider Internal Medicine Cardiovascular Disease
DX: I25.5 Ischemic cardiomyopathy (principal); E78.5 Hyperlipidemia, unspecified; I25.10 Atherosclerotic heart disease of native coronary artery without angina pectoris; R53.83 Other fatigue
CPT/HCPCS: 78452; 93017; 93306; A9502

== ENCOUNTER 2018-06-20 14:18 | Observation (INO) ==
[2018-06-20 14:48] LABS: Basophils % 0.4 % (0.1-2.0); Eosinophils # 0.2 K/mm3 (0.0-0.4); Hematocrit 49.1 % (42.0-52.0); Hemoglobin 16.2 g/dL (14.1-18.0); Lymphocytes # 2.3 K/mm3 (0.7-4.5); Lymphocytes % 24.5 % (10-50); Mean Corpuscular Hemoglobin 31.5 pg (27.0-31.2); Mean Corpuscular Volume 95.7 fl (80-94); Mean Platelet Volume 7.5 fl (7.4-10.4); Monocytes # 0.5 K/mm3 (0.1-1.0); Monocytes % 5.6 % (1.7-9.3); Neutrophils # 6.4 K/mm3 (1.8-7.8); Neutrophils % 67.5 % (37.0-80.0); Platelet Count 280 K/mm3 (142-424); Red Blood Count 5.13 M/mm3 (4.60-6.20); White Blood Count 9.4 K/mm3 (4.8-10.8)
[2018-06-20 15:04] LABS: Blood Urea Nitrogen 14 mg/dL (7-18); Calcium 8.8 mg/dL (8.5-10.1); Carbon Dioxide 25 mmol/L (21.0-32.0); Chloride 102 mmol/L (98-107); Glucose 102 mg/dL (74-106); Sodium 137 mmol/L (136-145)
--- NOTE | 2018-06-20 15:04 | Emergency Department Note ---
ED Disposition Clinical Impression: Chest pain, atypical CAD (coronary artery disease) Qualifiers: Coronary Disease-Associated Artery/Lesion type: [place] artery [place] vs. transplanted heart: [place] heart Associated angina: with stable angina Qualified Code(s): I25.118 - Atherosclerotic heart disease of [place] coronary artery with other forms of angina pectoris Disposition: Admitted as Observation Condition on Discharge: Good Time of Disposition: 15:33 - Critical Care Critical Care Time: No Attestation: On 06/20/18, the high probability of a clinically significant, sudden or life threatening deterioration of the following system(s) required my full and direct attention, intervention and personal management. The time I documented below is in addition to time spent performing reported procedures but includes the following listed in this critical care notation. Medical Decision Making - Medical Records Medical records reviewed: Yes: I reviewed the patient's medical records. - Hugo Inquiry Pt receiving controlled substance: No Hugo was queried for this patient: No Vital Signs: 06/20/18 14:22 06/20/18 15:59 06/20/18 16:08 Temperature 98.3 F 98.3 F Temperature Source Oral Oral Pulse Rate 74 Pulse Rate [Left Radial] 95 H 74 Respiratory Rate 18 18 18 Blood Pressure 125/88 Blood Pressure [Right Arm] 141/88 H 125/88 Blood Pressure Mean [Right Arm] 105 100 Blood Pressure Source Automatic Cuff Blood Pressure Source [Right Arm] Automatic Cuff Automatic Cuff Blood Pressure Position Sitting Blood Pressure Position [Right Arm] Sitting Supine 02 Sat by Pulse Oximetry 96 97 Oxygen Delivery Method Room Air Room Air Room Air - Lab Data Lab results reviewed: Yes: I reviewed the patient's lab results. Lab Results 06/20/18 14:39: WBC 9.4, RBC 5.13, Hgb 16.2, Hct 49.1, MCV 95.7 H, MCH 31.5 H, MCHC 33.0, RDW 13.0, Plt Count 280, MPV 7.5, Neut % (Auto) 67.5, Lymph % (Auto) 24.5, [place] % (Auto) 5.6, Eos % (Auto) 2.0, Baso % (Auto) 0.4, Neut # (Auto) 6.4, Lymph # (Auto) 2.3, [place] # (Auto) 0.5, Eos # (Auto) 0.2, Baso # (Auto) 0.0 06/20/18 14:39: Sodium 137, Potassium 4.0, Chloride 102, Carbon Dioxide 25, Anion Gap 14.0, BUN 14, Creatinine 1.05, Estimated Creat Clear 98, Estimated GFR 74, Est GFR ( Amer) 89, Glucose 102, Calcium 8.8, Troponin I < 0.02 Result diagrams: 06/20/18 14:39 06/20/18 14:39 Orders (Tests/Meds): ED MEDICATIONS Generic Name Dose Route Start Last Admin Trade Name Freq PRN Reason Stop Dose Admin Acetaminophen 650 mg 06/20/18 16:05 06/20/18 18:30 Acetaminophen 325mg Tab PO 07/20/18 16:04 650 mg Q4HP PRN Administration As Needed for Fever or Pain Aspirin 81 mg 06/21/18 09:00 Aspirin 81mg Enteric Coated Tablet PO 07/21/18 08:59 DAILY [facility] Atorvastatin Calcium 40 mg 06/20/18 21:00 Lipitor 40mg Tablet PO 07/20/18 20:59 HS [facility] Sodium Chloride 1,000 mls @ 150 mls/hr 06/20/18 16:05 06/20/18 17:49 Sod Chlor 0.9% 1000ml Bag IV 07/20/18 16:04 150 mls/hr .Q6H40M [place] Administration Lisinopril 2.5 mg 06/21/18 09:00 Zestril 2.5mg Tablet PO 07/21/18 08:59 DAILY [facility] Metoprolol Tartrate 12.5 mg 06/20/18 21:00 Lopressor 25mg Tablet PO 07/20/18 20:59 BID [place] Ondansetron HCl 4 mg 06/20/18 16:05 Zofran 4mg/2ml Vial IV 07/20/18 16:04 Q8HP PRN Nausea Spironolactone 25 mg 06/21/18 09:00 Aldactone 25mg Tablet PO 07/21/18 08:59 DAILY [facility] Ticagrelor 90 mg 06/20/18 21:00 Brilinta 90mg Tablet PO 07/20/18 20:59 BID [place] Discontinued Medications Generic Name Dose Route Start Last Admin Trade Name Freq PRN Reason Stop Dose Admin Aspirin 324 mg 06/20/18 15:38 06/20/18 15:39 Aspirin 81mg Chewable Tablet PO 06/20/18 15:39 324 mg ONCE ONE Administration Aspirin 325 mg 06/21/18 09:00 Aspirin 325mg Tablet PO 07/21/18 08:59 DAILY [place] Fentanyl Citrate 50 mcg 06/20/18 15:37 Fentanyl 250mcg/5ml Vial IV 06/21/18 15:37 Q3MINP PRN Moderate to Severe Pain Fentanyl Citrate 25 mcg 06/20/18 15:37 Fentanyl 250mcg/5ml Vial IV 06/21/18 15:37 Q3MINP PRN Moderate to Severe Pain Flumazenil 0.2 mg 06/20/18 15:37 Romazicon 0.1mg/Ml 5ml Vial IV 06/20/18 23:00 NEEDED PRN Sedation Midazolam HCl 1 mg 06/20/18 15:37 Midazolam 2mg/2ml Vial IV 06/21/18 15:37 Q3MINP PRN Sedation Midazolam HCl 1 mg 06/20/18 15:37 Midazolam 1mg/Ml 5ml Vial IV 06/21/18 15:37 Q3MINP PRN Sedation Naloxone HCl 0.4 mg 06/20/18 15:37 Narcan 0.4mg/Ml Vial IV 06/21/18 15:37 Q5MINP PRN Decreased respirations Sodium Chloride 10 ml 06/20/18 15:37 Saline Flush 10ml Syringe IV 07/20/18 15:36 NEEDED PRN Maintain IV Site ORDERS Category Date Time Status Basic Metabolic Panel AMLAB Lab 06/21/18 06:00 Ordered Complete Blood Count Auto Diff AMLAB Lab 06/21/18 06:00 Ordered Troponin I Q3H Lab 06/20/18 18:45 Ordered Troponin I Q3H Lab 06/20/18 21:45 Ordered - ECG Data Tracing #1 ECG initial impression date: 06/20/18 ECG initial impression time: 15:04 Normal Sinus Rhythm: Yes Ischemic changes: q waves General Adult HPI - General Chief complaint: Headache Stated complaint: pain in gums Time Seen by Provider: 06/20/18 15:01 Mode of Arrival: Ambulatory Limitations: No Limitations Description of Symptoms (Recalled from ER Triage Doc. by RN): States that his gums are hurting for two days. States that last time he had this he "had a heart attack". c/o headache - History of Present Illness MD complaint: bilateral jaw pain, "gums hurting", exertional occurring over several days. Location: face, neck - Related Data Home Medications Medication Instructions Recorded Confirmed aspirin 81 mg tablet,delayed 81 mg PO QDAY 06/07/17 06/20/18 release atorvastatin 40 mg tablet 40 mg PO QDAY 06/07/17 06/20/18 lisinopril 2.5 mg tablet 2.5 mg PO QDAY 06/07/17 06/20/18 Previous Rx's Medication Instructions Recorded spironolactone 25 mg tablet 25 mg PO QDAY #30 tab 03/06/18 metoprolol tartrate 25 mg tablet 12.5 mg PO BID #90 tab 04/29/18 ticagrelor 90 mg tablet 90 mg PO BID #180 tab 04/29/18 Allergies Allergy/AdvReac Type Severity Reaction Status Date / Time hydrocodone [HYDROCODONE] Allergy Unknown Verified 10/05/17 10:[address] [facility] History - Hepatitis A Screen Drug use history?: No High risk sexual behaviors?: No History of sexually transmitted infection?: No Currently employed?: No Childcare worker?: No Do you have indoor plumbing?: Yes Do you have electricity?: Yes Attestation statement:: This patient has been screened for Hepatitis A risk factors. I have reviewed the patient's past medical history: Yes Medical History: Reports:: Congestive Heart Failure, Hyperlipidemia, Hypertension, Kidney Stones, Migraine, Myocardial Infarction Denies:: Anxiety, Cancer, Diabetes Mellitus Type 1, Diabetes Mellitus Type 2, Internal Pacemaker, MRSA Other Surgeries: Yes: Other (kidney stone removal). No: Pacemaker Amputation: No Fractures: No Comment: [facility]-STEMI 05/28/2017 6 stents - Social History Smoking Status: Current every day smoker Tobacco Type: cigarettes # Packs/Day (cigarettes): 1 #Yrs smoked (if former smoker): 35 Alcohol Intake: never Alcohol Intake Frequency:: other Substance Use Type: denies use Occupational Status: employed Household Members: none - Psychiatric History Expresses thoughts of harming self/others: None Suicide Plan Description: No Plan Pschychiatric History:: Denies:: Anxiety, Attention Deficit Disorder, Bipolar Disorder, Eating Disorder, Post Traumatic Stress Disorder, Suicide Attempt, Psychiatric Luanne tment, Schizophrenia Family Hx:: Coronary Artery Disease, Heart Attack Comment: Mother CAD. Sister CABG @ 55 yo d/t GA ROS Obtained: Yes All systems reviewed & no additional complaints - Constitutional Constitutional: Reports system reviewed and no additional complaints, except as docu, Denies chills, Denies fever(s), Denies weakness - Eyes Eyes: Reports system reviewed and no additional complaints, except as docu, Denies change in vision - ENT Ears, Nose, Mouth, and Throat: Reports system reviewed and no additional complaints, except as docu, Denies facial pain, Denies sore throat, Denies throat swelling - Cardiovascular Cardiovascular: Reports system reviewed and no additional complaints, except as docu, Denies chest pain, Denies chest pain at rest, Denies palpitations - Respiratory Respiratory: Yes system reviewed and no additional complaints, except as docu, No chest congestion, No cough, No non-productive cough - Gastrointestinal Gastrointestingal: Reports: system reviewed and no additional complaints, except as docu. Denies: abdominal pain, nausea - Musculoskeletal Musculoskeletal: Reports system reviewed and no additional complaints, except as docu, Denies joint pain, Denies joint stiffness, Denies joint swelling - Integumentary/Breasts Skin/Breast: Denies rash, Denies skin pain - Neurologic Neurologic: Reports system reviewed and no additional complaints, except as docu, Denies abnormal movements, Denies weakness - Hematologic/Lymphatic Henatologic/Lymphatic: Reports system reviewed and no additional complaints, except as docu Physical Exam - General General appearance: alert, in no apparent distress - Head Head exam: atraumatic, normocephalic, normal inspection - Eye Eye exam: Present: normal appearance, PERRL, EOMI - ENT ENT exam: Present: normal exam, normal oropharynx, mucous membranes moist, TM's normal bilaterally, normal external ear exam - Neck Neck exam: Present: normal inspection, full ROM, trachea midline. Absent: meningismus, lymphadenopathy - Chest Chest inspection: Present: normal inspection, symmetric chest wall rise. Absent: tenderness - Respiratory Respiratory exam: Present: normal lung sounds bilaterally. Absent: respiratory distress - Cardiovascular Cardiovascular exam: Present: regular rate, normal rhythm. Absent: JVD - Abdominal Exam Abdominal exam: Present: soft, normal bowel sounds. Absent: distention, tenderness, guarding - Extremities Exam Extremities exam: Present: normal inspection, full ROM, normal capillary refill. Absent: calf tenderness - Neurological Exam Neurological exam: Present: alert, oriented X3 - Psychiatric Psychiatric exam: Present: normal affect, normal mood - Skin Skin exam: Present: warm, dry, intact, normal color
--- NOTE | 2018-06-20 15:26 | Consult Report ---
History of Present Illness Consult date: 06/20/18 Consult reason: chest pain Chief complaint: Jaw Pain, chest pain Additional Medical History:: 1. CAD A. STEMI, 05/2017 B. Cardiac cath, 05/2017,ANGIOGRAPHIC RESULTS: 1. The left main artery has an ostial 20% stenosis mid vessel 20% stenosis 2. The left anterior descending artery has proximal 60-70% stenosis and then a 99% subtotally occlusion at mid vessel. This 99. Percent stenosis extends also into the large first diagonal artery and distal to the first diagonal artery in the mid LAD 3. The circumflex artery is a nondominant vessel giving rise to a large first obtuse marginal artery which has a proximal 90% stenosis. The second obtuse marginal artery appears to be a smaller vessel and subtotally occluded proximally 4. The right coronary artery is a large dominant vessel and initially occluded. There were scant left to right collaterals from the LAD system. After percutaneous revascularization the proximal mid distal LAD was widely patent with no angiographic evidence of stenosis. The posterior descending artery was a large vessel which now fills antegrade and has a proximal 30-40% and a mid vessel 90% stenosis at a 2.25 mm segment. Ostial lateral ventricular branch is a large branch and has mild 20% proximal stenosis mid vessel 20-30% stenoses 5. The JAMES ventriculogram reveals severe left ventricular dilatation with severely reduced ejection fraction estimated at 20%. The anterior wall is akinetic as is the inferior 6. The left ventricular end-diastolic pressure 40 mmHg IMPRESSION: 1. Critical three-vessel coronary artery disease as described above accomp anied by cardiogenic shock and severely reduced ejection fraction 2. Successful revascularization of the proximal and mid LAD. Severe disease followed by subtotal occlusion reduced to 0% with 2 stents in the LAD 3. Subtotal occlusion of the large proximal first diagonal artery with successful revascularization with a single drug-eluting stent reducing the stenosis to 0% 4. Severe to critical disease in a large first obtuse marginal artery with successful stenting of the proximal circumflex artery and obtuse marginal artery 90% stenosis reduced to 0% with 1 drug-eluting stent 5. Persistent chronic total occlusion of a smaller second obtuse marginal artery 6. Apparent chronic total occlusion of the proximal dominant right coronary artery with scant collateralization from the LAD with successful percutaneous revascularization and reconstruction of the entire proximal mid and distal right coronary artery, 100% stenosis reduced to 0% with 2 large drug-eluting stents 7. Severely reduced ejection fraction 8. Severely elevated LVEDP PLAN: 1. Brilinta 90 twice a day and aspirin 81 mg daily 2. LDL less than 55 3. Manan inhibitors and carvedilol once hemodynamically stable 4. Complete avoidance of tobacco products 5. Cardiac rehabilitation 6. Echocardiogram will be obtained 7. Patient requires a lifevest prior to discharge home 8. Rather than giving patient diuresis I would prefer afterload reducing the ventricle with manan inhibitors. He should have improvement in his hemodynamics and should diuresis without the addition of Loop diuretics initially. Prior to discharge home patient will likely require low dose Lasix and low-dose spironolactones however it is more important for patient to have manan inhibitors prior to diuretics C. Ischemic Cardiomyopathy with cardiogenic shock D. Echo, 06/2017, 2D 1. Left atrium is qualitatively mildly enlarged, left ventricle is normal size, there is no concentric left ventricular hypertrophy, visually estimated ejection fraction approximately 45%, there appears to be mild to moderate hypokinesis involving the mid to distal septum, anteroapical and apical wall. 2. The right atrium and right ventricle are normal size and contractility. 3. The aortic valve is minimally thickened and fibrosed. 4. The mitral and tricuspid valve leaflets are minimally thickened. 5. The pulmonic valve is poorly visualized. 6. No significant pericardial effusion noted. DOPPLER INTERROGATION: Doppler interrogation of the aortic, mitral and tricuspid valvular presence of mild mitral and tricuspid regurgitation, tricuspid regurgitant jet velocity is insufficient for calculation of the right ventricular systolic pressure, grade 1 diastolic dysfunction seen without tissue Doppler evidence of raised left atrial pressure. CONCLUSION: 1. Mildly enlarged left atrium, normal left ventricular size, visually estimated ejection fraction 45% with segmental wall motion abnormality described above, grade 1 diastolic dysfunction seen without tissue Doppler evidence of raised left atrial pressure. 2. Mild mitral and tricuspid regurgitation 3. No significant pericardial effusion noted E. GXT myoview, 10 min and 30 sec, blunted heart rate due to BB. Previous nontransmural myocardial infarction involving the inferior wall without evidence of reversible ischemia accompanied by normal ejection (47%) and normal wall motion 2. Tobacco use, continuous 3. Hypertension 4. Hyperlipidemia History of present illness: 52-year-old white male with history of ST elevation PA and cardiogenic shock 1 year ago with multiple stents placed in all 3 coronary arteries with subsequent near resolution of ejection fraction on medical therapy presented to the ER today with a 4-day history of exertional jaw pain that resolves with rest. ER evaluation showed normal troponin with EKG showing old inferior PA without acute ST segment changes. Cardiology consulted due to the patient's previous cardiac history and atypical symptoms. Patient does relate he has been out of his aspirin, lisinopril and atorvastatin for about 3 days. He maintains compliance with Brilinta, spironolactone and metoprolol. [facility] History Medical History: Reports:: Congestive Heart Failure, Hyperlipidemia, Hypertension, Kidney Stones, Migraine, Myocardial Infarction Denies:: Anxiety, Cancer, Diabetes Mellitus Type 1, Diabetes Mellitus Type 2, Internal Pacemaker, MRSA Other Surgeries: Yes: Other (kidney stone removal). No: Pacemaker Amputation: No Fractures: No - *Social History Smoking Status: Current every day smoker Tobacco Type: cigarettes # Packs/Day (cigarettes): 1 #Yrs smoked (if former smoker): 35 Alcohol Intake: never Alcohol Intake Frequency:: other Substance Use Type: denies use Occupational Status: employed Household Members: none Travel in the last 8 weeks: None - Psychiatric History Expresses thoughts of harming self/others: None Suicide Plan Description: No Plan Pschychiatric History:: Denies:: Anxiety, Attention Deficit Disorder, Bipolar Disorder, Eating Disorder, Post Traumatic Stress Disorder, Suicide Attempt, Psychiatric Treatment, Schizophrenia *Family Hx:: Coronary Artery Disease, Heart Attack Meds Home Medications Medication Instructions Recorded Confirmed Type aspirin 81 mg tablet,delayed 81 mg PO QDAY 06/07/17 06/20/18 History release atorvastatin 40 mg tablet 40 mg PO QDAY 06/07/17 06/20/18 History lisinopril 2.5 mg tablet 2.5 mg PO QDAY 06/07/17 06/20/18 History spironolactone 25 mg tablet 25 mg PO QDAY #30 tab 03/06/18 06/20/18 Rx metoprolol tartrate 25 mg tablet 12.5 mg PO BID #90 tab 04/29/18 06/20/18 Rx ticagrelor 90 mg tablet 90 mg PO BID #180 tab 04/29/18 06/20/18 Rx Allergies Allergy/AdvReac Type Severity Reaction Status Date / Time hydrocodone [HYDROCODONE] Allergy Unknown Verified 10/05/17 10:07 Review of Systems - ENT Denies nosebleed, Denies sore throat - *Cardiovascular Denies chest pain, Denies shortness of breath with activity - *Respiratory Denies shortness of breath with activity - *Gastrointestinal Denies abdominal pain, Denies loose stools - *Genitourinary Denies blood in urine - *Musculoskeletal Denies joint pain - *Neurologic Denies abnormal movements, Denies weakness Exam Vital signs and Labs for Last 24 Hours: Temp Pulse Resp BP Pulse Ox 98.3 F 95 H 18 141/88 H 96 06/20/18 14:22 06/20/18 14:22 06/20/18 14:22 06/20/18 14:22 06/20/18 14:22 Laboratory Results - last 24 hr 06/20/18 14:39: WBC 9.4, RBC 5.13, Hgb 16.2, Hct 49.1, MCV 95.7 H, MCH 31.5 H, MCHC 33.0, RDW 13.0, Plt Count 280, MPV 7.5, Neut % (Auto) 67.5, Lymph % (Auto) 24.5, [place] % (Auto) 5.6, Eos % (Auto) 2.0, Baso % (Auto) 0.4, Neut # (Auto) 6.4, Lymph # (Auto) 2.3, [place] # (Auto) 0.5, Eos # (Auto) 0.2, Baso # (Auto) 0.0 06/20/18 14:39: Sodium 137, Potassium 4.0, Chloride 102, Carbon Dioxide 25, Anion Gap 14.0, BUN 14, Creatinine 1.05, Estimated Creat Clear 98, Estimated GFR 74, Est GFR ( Amer) 89, Glucose 102, Calcium 8.8, Troponin I < 0.02 I & O for Last 24 hours: Intake & Output 06/18/18 06/19/18 06/20/18 06/21/18 11:59 11:59 11:59 11:59 Weight 190 lb - *Routine HEENT Exam Head: Present: normocephalic Eye: Present: EOMI, PERRL ENT: Present: mucous membranes moist - *Routine Neck Exam Present: supple. Absent: JVD, carotid bruit - *Routine Respiratory Exam Present: CTA bilaterally. Absent: accessory muscle use, rales, rhonchi, wheezes - *Routine Cardiovascular Exam Present: RRR. Absent: murmur, gallop, rubs - *Routine Abdominal Exam Present: soft. Absent: tenderness, distended, guarding - *Routine Extremities Exam Absent: edema, calf tenderness - *Routine Neurological Exam Present: alert, oriented X3, moving all extremities Assessment and Plan (1) Unstable angina Current visit: Yes Status: Acute Category: Medical Code(s): I20.0 - Unstable angina (2) Hypertension Current visit: Yes Status: Acute Category: Medical Code(s): I10 - Essential (primary) hypertension (3) CAD (coronary artery disease) Current visit: No Status: Chronic Qualifiers: Coronary Disease-Associated Artery/Lesion type: [place] artery [place] vs. transplanted heart: [place] heart Associated angina: without angina Qualified Code(s): I25.10 - Atherosclerotic heart disease of [place] coronary artery without angina pectoris Category: Medical Code(s): I25.10 - Atherosclerotic heart disease of [place] coronary artery without angina pectoris (4) Hyperlipidemia Current visit: No Status: Chronic Qualifiers: Hyperlipidemia type: other hyperlipidemia Qualified Code(s): E78.49 - Other hyperlipidemia; E78.4 - Other hyperlipidemia Category: Medical Code(s): E78.5 - Hyperlipidemia, unspecified (5) Ischemic cardiomyopathy Current visit: No Status: Chronic Category: Medical Code(s): I25.5 - Isch emic cardiomyopathy (6) Tobacco use Current visit: No Status: Chronic Category: Medical Code(s): Z72.0 - Tobacco use - Assessment and plan all Dx Assessment and Plan for all problems:: 1. Continue home dosing of aspirin, Brilinta, lisinopril, metoprolol and spironolactone. 2. Serial cardiac enzymes. 3. Echocardiogram today to evaluate left ventricular ejection fraction with known history of ischemic cardiomyopathy 4. We will plan to proceed with left heart catheterization tomorrow.
--- NOTE | 2018-06-20 17:10 | Cardiology Report ---
PROCEDURE: 2-D M-mode and color Doppler study INDICATIONS FOR THE TEST: Chest pain+ COPD Heart Murmur Tobacco Smoking+ Palpitations+ Fatigue Syncope Edema+ Hypertension+Diabetes Mellitus Rheumatic Fever SOB+ALFRED Obesity Hyperlipidemia+ Family History HD Additional History HX of CM, stents, CAD, hx of [place], hx of CHF PATIENT INFORMATION HEIGHT: 69 WEIGHT: 190 GENDER: Male B/P: 141/88 2-D/M-MODE INTERPRETATION: 2-D MEASUREMENTS OBSERVED VALUES IN CMS Right Ventricular Dimension (RVDd) 2.9 Interventricular Septum (Thickness)(IVsd) 1.2 Left Ventricular Internal Dimensions(LVIDd) 5.0 Left Ventricular Posterior Wall (Thickness)(LVPWd) 1.2 Aortic Root 3.1 Aortic Cusp Separation 2.2 Left Atrial Dimensions (LAD) 3.6 2D 1. Left atrium is mildly enlarged, left ventricle is normal size, mild concentric left ventricular hypertrophy, visually estimated ejection fraction 55% with no regional wall motion abnormality. 2. The right atrium and right ventricle are mildly enlarged with normal contractility. 3. The aortic valve is minimally thickened and fibrosed leaflet continue to display mobility. 4. The mitral and tricuspid valve leaflets are minimally thickened. 5. The pulmonic valve is poorly visualized. 6. No significant pericardial effusion noted. DOPPLER INTERROGATION: Doppler interrogation of the aortic, mitral and tricuspid valvular presence of mild mitral and tricuspid regurgitation, tricuspid regurgitation jet velocity is inadequate for calculation of the right ventricular systolic pressure. Grade 1 diastolic dysfunction seen without tissue Doppler evidence of raised left atrial pressure. CONCLUSION: 1. Mildly enlarged left atrium, normal left ventricular size, mild concentric left ventricular hypertrophy, visually estimated ejection fraction 55% with no regional wall motion abnormality, grade 1 diastolic dysfunction seen without tissue Doppler evidence of raised left atrial pressure. 2. Mildly enlarged right ventricle with normal contractility. 3. Mild mitral and tricuspid regurgitation 4. No significant pericardial effusion noted
--- NOTE | 2018-06-20 17:30 | History & Physical Report ---
*Admission Date: 06/20/18 *Chief complaint: chest pain *History of present illness: Mr. Arredondo is a 52-year-old white male with a history of ST elevation PA and cardiogenic shock 1 year ago with multiple stents placed in all 3 coronary arteries with subsequent near resolution of ejection fraction on medical therapy who presented to the ER today with a 4-day history of exertional jaw pain that resolves with rest. ER evaluation showed normal troponin with EKG showing old inferior PA without acute ST segment changes. Cardiology was consulted due to the patient's previous cardiac history and atypical symptoms. Patient does relate he has been out of his aspirin, lisinopril and atorvastatin for about 3 days. He maintains compliance with Brilinta, spironolactone and metoprolol. The above was per Tip Jasso PA-C. The patient was admitted overnight for monitoring and a cath in the am. [facility] History Medical History: Reports:: Congestive Heart Failure, Hyperlipidemia, Hypertension, Kidney Stones, Migraine, Myocardial Infarction Denies:: Anxiety, Cancer, Diabetes Mellitus Type 1, Diabetes Mellitus Type 2, Internal Pacemaker, MRSA Have you ever received a pneumonia vaccine?: No Have you received a flu vaccine this season?: No Other Surgeries: Yes: Cardiac Catheterization, Coronary Stent, Other (kidney stone removal). No: Pacemaker Amputation: No Fractures: No - *Social History Educational Level: Attended High School Smoking Status: Current some day smoker Tobacco Type: cigarettes # Packs/Day (cigarettes): 1 #Yrs smoked (if former smoker): 40 Alcohol Intake: never Alcohol Intake Frequency:: other Substance Use Type: denies use Occupational Status: employed Housing: house Household Members: none Travel in the last 8 weeks: None - Psychiatric History Expresses thoughts of harming self/others: None Suicide Plan Description: No Plan Pschychiatric History:: Denies:: Anxiety, Attention Deficit Disorder, Bipolar Disorder, Eating Disorder, Post Traumatic Stress Disorder, Suicide Attempt, Psychiatric Treatment, Schizophrenia *Family Hx:: Coronary Artery Disease, Heart Attack Review of Systems - Constitutional Denies body ache(s), Denies chills, Denies weakness - Eyes Denies blurry vision, Denies double vision - ENT Denies nasal congestion, Denies neck pain, Denies sore throat - *Cardiovascular Reports radiating jaw, neck or arm pain, Denies chest pain, Denies excessive sweating, Denies rapid, pounding, or irregular heartbeat - *Respiratory Denies chest congestion, Denies cough, Denies shortness of breath - *Gastrointestinal Denies abdominal pain, Denies loose stools, Denies nausea, Denies vomiting - *Genitourinary Denies difficulty urinating, Denies painful urination - *Musculoskeletal Denies joint pain, Denies body aches - *Neurologic Denies abnormal movements, Denies headache(s), Denies dizziness, Denies weakness Meds Home Medications Medication Instructions Recorded Confirmed Type aspirin 81 mg tablet,delayed 81 mg PO QDAY 06/07/17 06/20/18 History release atorvastatin 40 mg tablet 40 mg PO QDAY 06/07/17 06/20/18 History lisinopril 2.5 mg tablet 2.5 mg PO QDAY 06/07/17 06/20/18 History spironolactone 25 mg tablet 25 mg PO QDAY #30 tab 03/06/18 06/20/18 Rx metoprolol tartrate 25 mg tablet 12.5 mg PO BID #90 tab 04/29/18 06/20/18 Rx ticagrelor 90 mg tablet 90 mg PO BID #180 tab 04/29/18 06/20/18 Rx Allergies Allergy/AdvReac Type Severity Reaction Status Date / Time hydrocodone [HYDROCODONE] Allergy Unknown Verified 10/05/17 10:07 Exam Vital signs and Labs for Last 24 Hours: Temp Pulse Resp BP Pulse Ox 97.0 F L 69 20 141/82 H 98 06/20/18 16:27 06/20/18 16:27 06/20/18 16:27 06/20/18 16:27 06/20/18 16:27 Laboratory Results - last 24 hr 06/20/18 14:39: WBC 9.4, RBC 5.13, Hgb 16.2, Hct 49.1, MCV 95.7 H, MCH 31.5 H, MCHC 33.0, RDW 13.0, Plt Count 280, MPV 7.5, Neut % (Auto) 67.5, Lymph % (Auto) 24.5, [place] % (Auto) 5.6, Eos % (Auto) 2.0, Baso % (Auto) 0.4, Neut # (Auto) 6.4, Lymph # (Auto) 2.3, [place] # (Auto) 0.5, Eos # (Auto) 0.2, Baso # (Auto) 0.0 06/20/18 14:39: Sodium 137, Potassium 4.0, Chloride 102, Carbon Dioxide 25, Anion Gap 14.0, BUN 14, Creatinine 1.05, Estimated Creat Clear 98, Estimated GFR 74, Est GFR ( Amer) 89, Glucose 102, Calcium 8.8, Troponin I < 0.02 I & O for Last 24 hours: Intake & Output 06/18/18 06/19/18 06/20/18 06/21/18 11:59 11:59 11:59 11:59 Weight 195 lb 8 oz - Constitutional no acute distress - *Routine HEENT Exam Head: Present: normocephalic Eye: Present: EOMI, PERRL ENT: Present: mucous membranes dry - *Routine Neck Exam Present: supple. Absent: lymphadenopathy - *Routine Respiratory Exam Present: CTA bilaterally - *Routine Cardiovascular Exam Present: RRR - *Routine Abdominal Exam Present: soft, normoactive bowel sounds. Absent: tenderness - *Routine Extremities Exam Absent: cyanosis, clubbing, edema - *Routine Skin Exam Present: warm. Absent: rash - *Routine Neurological Exam Present: alert, oriented X3 H&P: Result - Impressions CXR - 1. 14 mm nodular opacity right lower lung zone which could be due to some motion artifact or developing nodule. Follow-up radiograph with better inspiration suggested. If this persists then, CT may be needed for further evaluation 2. coronary artery stent present. 3. Otherwise negative Echo 1. Mildly enlarged left atrium, normal left ventricular size, mild concentric left ventricular hypertrophy, visually estimated ejection fraction 55% with no regional wall motion abnormality, grade 1 diastolic dysfunction seen without tissue Doppler evidence of raised left atrial pressure. 2. Mildly enlarged right ventricle with normal contractility. 3. Mild mitral and tricuspid regurgitation 4. No significant pericardial effusion noted Assessment and Plan (1) Unstable angina Current visit: Yes Status: Acute Category: Medical Code(s): I20.0 - Unstable angina (2) Hypertension Current visit: Yes Status: Acute Category: Medical Code(s): I10 - E ssential (primary) hypertension (3) CAD (coronary artery disease) Current visit: Yes Status: Chronic Qualifiers: Coronary Disease-Associated Artery/Lesion type: [place] artery [place] vs. transplanted heart: [place] heart Associated angina: without angina Qualified Code(s): I25.10 - Atherosclerotic heart disease of [place] coronary artery without angina pectoris Category: Medical Code(s): I25.10 - Atherosclerotic heart disease of [place] coronary artery without angina pectoris (4) Hyperlipidemia Current visit: No Status: Chronic Qualifiers: Hyperlipidemia type: other hyperlipidemia Qualified Code(s): E78.49 - Other hyperlipidemia; E78.4 - Other hyperlipidemia Category: Medical Code(s): E78.5 - Hyperlipidemia, unspecified (5) Ischemic cardiomyopathy Current visit: No Status: Chronic Category: Medical Code(s): I25.5 - Ischemic cardiomyopathy (6) Tobacco use Current visit: No Status: Chronic Category: Medical Code(s): Z72.0 - To bacco use - Assessment and plan all Dx Assessment and Plan for all problems:: Cardiology wanted to continue home dosing of aspirin, Brilinta, lisinopril, met oprolol and spironolactone, get serial cardiac enzymes, and proceed with left heart cath tomorrow.
[2018-06-21 07:02] LABS: Anion Gap 12.1 mEq/L (5-15); Calcium 8.4 mg/dL (8.5-10.1); Potassium 4.1 mmoL/L (3.5-5.1)
[2018-06-21 07:07] LABS: Basophils # 0.1 K/mm3 (0-0.2); Basophils % 0.6 % (0.1-2.0); Eosinophils # 0.4 K/mm3 (0.0-0.4); Eosinophils % 5.4 % (0.1-12.0); Hematocrit 44.7 % (42.0-52.0); Lymphocytes # 2.5 K/mm3 (0.7-4.5); Lymphocytes % 32.3 % (10-50); Mean Corpuscular HGB Conc 32.4 g/dL (31.8-35.4); Mean Corpuscular Hemoglobin 31.3 pg (27.0-31.2); Mean Corpuscular Volume 96.5 fl (80-94); Mean Platelet Volume 7.5 fl (7.4-10.4); Monocytes # 0.6 K/mm3 (0.1-1.0); Monocytes % 7.2 % (1.7-9.3); Neutrophils # 4.2 K/mm3 (1.8-7.8); Neutrophils % 54.5 % (37.0-80.0); Platelet Count 247 K/mm3 (142-424); Red Blood Count 4.63 M/mm3 (4.60-6.20); Red Cell Distribution Width 12.9 % (11.5-17.5); White Blood Count 7.7 K/mm3 (4.8-10.8)
--- NOTE | 2018-06-21 07:27 | Pharmacy Consult Notes ---
[facility] Pharmacy VTE Monitoring - Patient Demographics Admission date: 06/20/18 Report Date: 06/21/18 Time: 07:26 Allergies/Adverse Reactions: Patient Allergies hydrocodone [HYDROCODONE] Allergy (Unknown, Verified 10/05/17 10:07) Height: 1.78 m Weight: 88.961 kg Patient Problems: Current Active Problems Atypical chest pain (Acute) Unstable angina (Acute) Hypertension (Acute) CAD (coronary artery disease) (Chronic) - VTE Risk Labs: VTE Related Lab Results Hgb 16.2 g/dL (14.1-18.0) 06/20/18 14:39 Hct 44.7 % (42.0-52.0) 06/21/18 06:26 Plt Count 247 K/mm3 (142-424) 06/21/18 06:26 BUN 13 mg/dL (7-18) 06/21/18 06:26 Creatinine 0.91 mg/dL (0.70-1.30) 06/21/18 06:26 Estimated Creat Clear 117 mL/min (50-200) 06/21/18 06:26 VTE Score: 3 VTE Risk Level: Low Risk - Prophylaxis VTE Prophylaxis Ordered?: Yes Types of VTE Prophylaxis: TEDS Knee High Location of Applied Device: Bilateral Lower Extremeties - VTE Diagnosis Confirmed Treatment or plan recommended: Continue Current Treatment
[2018-06-21 07:39] LABS: Hemoglobin 14.4 g/dL (14.1-18.0)
--- NOTE | 2018-06-21 08:47 | Progress Note ---
<Sheri Recio - Last Filed: 06/21/18 08:46> Internal Medicine - PN: Subj *Date: 06/21/18 *Time: 08:46 Interval history: Patient states he is feeling well this morning. He denies any more jaw pain. He slept off and on last night. He is n.p.o. this morning for a heart cath. Exam Vital signs and Labs for Last 24 Hours: Temp Pulse Resp BP Pulse Ox 98.1 F 71 16 124/77 98 06/21/18 07:40 06/21/18 07:40 06/21/18 07:40 06/21/18 07:40 06/21/18 07:40 Laboratory Results - last 24 hr 06/20/18 14:39: WBC 9.4, RBC 5.13, Hgb 16.2, Hct 49.1, MCV 95.7 H, MCH 31.5 H, MCHC 33.0, RDW 13.0, Plt Count 280, MPV 7.5, Neut % (Auto) 67.5, Lymph % (Auto) 24.5, [place] % (Auto) 5.6, Eos % (Auto) 2.0, Baso % (Auto) 0.4, Neut # (Auto) 6.4, Lymph # (Auto) 2.3, [place] # (Auto) 0.5, Eos # (Auto) 0.2, Baso # (Auto) 0.0 06/20/18 14:39: Sodium 137, Potassium 4.0, Chloride 102, Carbon Dioxide 25, Anion Gap 14.0, BUN 14, Creatinine 1.05, Estimated Creat Clear 98, Estimated GFR 74, Est GFR ( Amer) 89, Glucose 102, Calcium 8.8, Troponin I < 0.02 06/20/18 19:00: Troponin I 0.03 06/20/18 21:36: Troponin I 0.03 06/21/18 06:26: WBC 7.7, RBC 4.63, Hgb 14.4 D, Hct 44.7, MCV 96.5 H, MCH 31.3 H , MCHC 32.4, RDW 12.9, Plt Count 247, MPV 7.5, Neut % (Auto) 54.5, Lymph % (Auto) 32.3, [place] % (Auto) 7.2, Eos % (Auto) 5.4, Baso % (Auto) 0.6, Neut # (Auto) 4.2, Lymph # (Auto) 2.5, [place] # (Auto) 0.6, Eos # (Auto) 0.4, Baso # (Auto) 0.1 06/21/18 06:26: Sodium 137, Potassium 4.1, Chloride 106, Carbon Dioxide 23, Anion Gap 12.1, BUN 13, Creatinine 0.91, Estimated Creat Clear 117, Estimated GFR 87, Est GFR ( Amer) 105, Glucose 114 H, Calcium 8.4 L I & O for Last 24 hours: Intake & Output 06/18/18 06/19/18 06/20/18 06/21/18 11:59 11:59 11:59 11:59 Intake Total 2303 / 2303 Balance 2303 / 2303 Weight 196 lb 2 oz - Constitutional no acute distress - *Routine Respiratory Exam Present: CTA bilaterally - *Routine Cardiovascular Exam Present: RRR - *Routine Abdominal Exam Present: soft, normoactive bowel sounds. Absent: tenderness - *Routine Extremities Exam Absent: cyanosis, clubbing, edema Assessment and Plan (1) Unstable angina Current visit: Yes Status: Acute Category: Medical Code(s): I20.0 - Unstable angina (2) Hypertension Current visit: Yes Status: Acute Category: Medical Code(s): I10 - Essential (primary) hypertension (3) CAD (coronary artery disease) Current visit: Yes Status: Chronic Qualifiers: Coronary Disease-Associated Artery/Lesion type: [place] artery [place] vs. transplanted heart: [place] heart Associated angina: with stable angina Qualified Code(s): I25.118 - Atherosclerotic heart disease of [place] coronary artery with other forms of angina pectoris Category: Medical Code(s): I25.10 - Atherosclerotic heart disease of [place] coronary artery without angina pectoris (4) Hyperlipidemia Current visit: No Status: Chronic Qualifiers: Hyperlipidemia type: other hyperlipidemia Qualified Code(s): E78.49 - Other hyperlipidemia; E78.4 - Other hyperlipidemia Category: Medical Code(s): E78.5 - Hyperlipidemia, unspecified (5) Ischemic cardiomyopathy Current visit: No Status: Chronic Category: Medical Code(s): I25.5 - Ischemic cardiomyopathy (6) Tobacco use Current visit: No Status: Chronic Category: Medical Code(s): Z72.0 - Tobacco use - Assessment and plan all Dx Assessment and Plan for all problems:: Await heart cath this am. <Selina Chapman - Last Filed: 06/21/18 09:49> Exam Vital signs and Labs for Last 24 Hours: Temp Pulse Resp BP Pulse Ox 98.1 F 50 L 16 124/77 98 06/21/18 07:40 06/21/18 08:00 06/21/18 07:40 06/21/18 07:40 06/21/18 07:40 Laboratory Results - last 24 hr 06/20/18 14:39: WBC 9.4, RBC 5.13, Hgb 16.2, Hct 49.1, MCV 95.7 H, MCH 31.5 H, MCHC 33.0, RDW 13.0, Plt Count 280, MPV 7.5, Neut % (Auto) 67.5, Lymph % (Auto) 24.5, [place] % (Auto) 5.6, Eos % (Auto) 2.0, Baso % (Auto) 0.4, Neut # (Auto) 6.4, Lymph # (Auto) 2.3, [place] # (Auto) 0.5, Eos # (Auto) 0.2, Baso # (Auto) 0.0 06/20/18 14:39: Sodium 137, Potassium 4.0, Chloride 102, Carbon Dioxide 25, Anion Gap 14.0, BUN 14, Creatinine 1.05, Estimated Creat Clear 98, Estimated GFR 74, Est GFR ( Amer) 89, Glucose 102, Calcium 8.8, Troponin I < 0.02 06/20/18 19:00: Troponin I 0.03 06/20/18 21:36: Troponin I 0.03 06/21/18 06:26: WBC 7.7, RBC 4.63, Hgb 14.4 D, Hct 44.7, MCV 96.5 H, MCH 31.3 H , MCHC 32.4, RDW 12.9, Plt Count 247, MPV 7.5, Neut % (Auto) 54.5, Lymph % ([place] to) 32.3, [place] % (Auto) 7.2, Eos % (Auto) 5.4, Baso % (Auto) 0.6, Neut # (Auto) 4.2, Lymph # (Auto) 2.5, [place] # (Auto) 0.6, Eos # (Auto) 0.4, Baso # (Auto) 0.1 06/21/18 06:26: Sodium 137, Potassium 4.1, Chloride 106, Carbon Dioxide 23, Anion Gap 12.1, BUN 13, Creatinine 0.91, Estimated Creat Clear 117, Estimated GFR 87, Est GFR ( Amer) 105, Glucose 114 H, Calcium 8.4 L I & O for Last 24 hours: Intake & Output 06/18/18 06/19/18 06/20/18 06/21/18 11:59 11:59 11:59 11:59 Intake Total 230 / 2303 Balance 2302 / 230 Weight 196 lb 2 oz Assessment and Plan (1) Unstable angina Current visit: Yes Status: Acute Category: Medical Code(s): I20.0 - Unstable angina (2) Hypertension Current visit: Yes Status: Acute Category: Medical Code(s): I10 - Essential (primary) hypertension (3) CAD (coronary artery disease) Current visit: Yes Status: Chronic Qualifiers: Coronary Disease-Associated Artery/Lesion type: [place] artery [place] vs. transplanted heart: [place] heart Associated angina: with stable angina Qualified Code(s): I25.118 - Atherosclerotic heart disease of [place] coronary artery with other forms of angina pectoris Category: Medical Code(s): I25.10 - Atherosclerotic heart disease of [place] coronary artery without angina pectoris (4) Hyperlipidemia Current visit: No Status: Chronic Qualifiers: Hyperlipidemia type: other hyperlipidemia Qualified Code(s): E78.49 - Other hyperlipidemia; E78.4 - Other hyperlipidemia Category: Medical Code(s): E78.5 - Hyperlipidemia, unspecified (5) Ischemic cardiomyopathy Current visit: No Status: Chronic Category: Medical Code(s): I25.5 - Ischemic cardiomyopathy (6) Tobacco use Current visit: No Status: Chronic Category: Medical Code(s): Z72.0 - Tobacco use - Assessment and plan all Dx Assessment and Plan for all problems:: Agree with above Heart score was 4 and MACE was 17% patient will be reassessed again after heart cath this am by Dr. Bradshaw.
--- NOTE | 2018-06-21 16:17 | Progress Note ---
Subjective Date: 06/21/18 Time: 16:14 Principal diagnosis: UAP Interval history: No complaints overnight. Cath shows RCA disease for which he received MARTITA. Residual branch disease to be treated with medical therapy. Exam Vital signs and Labs for Last 24 Hours: Temp Pulse Resp BP Pulse Ox 97.4 F L 68 14 105/67 L 96 06/21/18 13:45 06/21/18 13:45 06/21/18 13:45 06/21/18 13:45 06/21/18 13:45 Laboratory Results - last 24 hr 06/20/18 19:00: Troponin I 0.03 06/20/18 21:36: Troponin I 0.03 06/21/18 06:26: WBC 7.7, RBC 4.63, Hgb 14.4 D, Hct 44.7, MCV 96.5 H, MCH 31.3 H , MCHC 32.4, RDW 12.9, Plt Count 247, MPV 7.5, Neut % (Auto) 54.5, Lymph % (Auto) 32.3, [place] % (Auto) 7.2, Eos % (Auto) 5.4, Baso % (Auto) 0.6, Neut # (Auto) 4.2, Lymph # (Auto) 2.5, [place] # (Auto) 0.6, Eos # (Auto) 0.4, Baso # (Auto) 0.1 06/21/18 06:26: Sodium 137, Potassium 4.1, Chloride 106, Carbon Dioxide 23, Anion Gap 12.1, BUN 13, Creatinine 0.91, Estimated Creat Clear 117, Estimated GFR 87, Est GFR ( Amer) 105, Glucose 114 H, Calcium 8.4 L 06/21/18 12:42: Activated Clotting Time 344 H* I & O for Last 24 hours: Intake & Output 06/19/18 06/20/18 06/21/18 06/22/18 11:59 11:59 11:59 11:59 Intake Total 2303 / 2303 360 / 360 Output Total 250 / 250 Balance 2303 / 2303 110 / 110 Weight 196 lb 2 oz - *Routine HEENT Exam Head: Present: normocephalic Eye: Present: EOMI, PERRL ENT: Present: mucous membranes moist - *Routine Respiratory Exam Present: CTA bilaterally. Absent: accessory muscle use, rales, rhonchi, wheezes - *Routine Cardiovascular Exam Present: RRR. Absent: murmur, gallop, rubs - *Routine Neurological Exam Present: alert, oriented X3, moving all extremities Progress Note: A&P (1) Unstable angina Status: Acute Current Visit: Yes (2) Hypertension Status: Acute Current Visit: Yes (3) CAD (coronary artery disease) Status: Chronic Current Visit: Yes (4) Hyperlipidemia Status: Chronic Current Visit: No (5) Ischemic cardiomyopathy Status: Chronic Current Visit: No (6) Tobacco use Status: Chronic Current Visit: No Assessment and Plan for All Diagnoses:: Recommend overnight stay with plans to discharge home in AM. Recommend ambulation to assess for recurrent angina (jaw pain) prior to discharge. Home on home meds. F/U in our office in 1 wks.
[2018-06-22 06:31] LABS: Basophils # 0.1 K/mm3 (0-0.2); Basophils % 0.5 % (0.1-2.0); Eosinophils # 0.3 K/mm3 (0.0-0.4); Eosinophils % 3.8 % (0.1-12.0); Hemoglobin 14.3 g/dL (14.1-18.0); Lymphocytes # 2.1 K/mm3 (0.7-4.5); Lymphocytes % 23.8 % (10-50); Mean Corpuscular HGB Conc 31.7 g/dL (31.8-35.4); Mean Corpuscular Hemoglobin 31.6 pg (27.0-31.2); Mean Corpuscular Volume 99.7 fl (80-94); Mean Platelet Volume 7.8 fl (7.4-10.4); Monocytes # 0.6 K/mm3 (0.1-1.0); Monocytes % 6.4 % (1.7-9.3); Neutrophils # 5.9 K/mm3 (1.8-7.8); Neutrophils % 65.5 % (37.0-80.0); Platelet Count 252 K/mm3 (142-424); Red Blood Count 4.51 M/mm3 (4.60-6.20)
[2018-06-22 06:41] LABS: Anion Gap 13.2 mEq/L (5-15); Calcium 8.7 mg/dL (8.5-10.1); Potassium 4.2 mmoL/L (3.5-5.1)
--- NOTE | 2018-06-22 10:45 | Discharge Summary ---
General - General Admission date:: 06/20/18 Discharge date: 06/22/18 HPI HPI: Mr. Arredondo is a 52-year-old white male with a history of ST elevation AR and cardiogenic shock 1 year ago with multiple stents placed in all 3 coronary arteries with subsequent near resolution of ejection fraction on medical therapy who presented to the ER today with a 4-day history of exertional jaw pain that resolves with rest. ER evaluation showed normal troponin with EKG showing old inferior AR without acute ST segment changes. Cardiology was consulted due to the patient's previous cardiac history and atypical symptoms. Patient does relate he has been out of his aspirin, lisinopril and atorvastatin for about 3 days. He maintains compliance with Brilinta, spironolactone and metoprolol. The above was per Tip Jasso PA-C. The patient was admitted overnight for monitoring and a cath in the am. Hospital Course Hospital Course: Patient was admitted to our facility for chest pain as he has an extensive history. Dr. Bradshaw was consulted and patient had a left heart cath the next day, which showed extensive RCA disease. Please see cath report for full details. Cardiology recommended medical therapy and discharge home if no chest pain with exertion. On the day of discharge, patient was able to ambulate with no exertional or resting chest pain. Advised to f/u with me in 1 week and cardiology in 1 week as well. Objective Vital signs: Temp Pulse Resp BP Pulse Ox 98.4 F 63 19 124/72 97 06/22/18 08:37 06/22/18 08:00 06/22/18 06:00 06/22/18 06:00 06/22/18 08:33 - *Routine HEENT Exam Head: Present: normocephalic Eye: Present: EOMI ENT: Present: mucous membranes moist - *Routine Neck Exam Present: supple, full ROM - *Routine Respiratory Exam Present: CTA bilaterally. Absent: accessory muscle use, decreased breath sounds - *Routine Cardiovascular Exam Present: RRR - *Routine Abdominal Exam Present: soft, normoactive bowel sounds - *Routine Extremities Exam Absent: edema - *Routine Skin Exam Present: intact - *Routine Neurological Exam Present: alert, oriented X3 - Routine Psychiatric Exam Present: normal affect Results Labs on day of discharge: Labs from last 24 hours 01/26/19 01/26/19 01/25/19 06:00 06:00 12:42 WBC 9.0 RBC 4.51 L Hgb 14.3 Hct 45.0 MCV 99.7 H MCH 31.6 H MCHC 31.7 L RDW 13.0 Plt Count 252 MPV 7.8 Neut % (Auto) 65.5 Lymph % (Auto) 23.8 [place] % (Auto) 6.4 Eos % (Auto) 3.8 Baso % (Auto) 0.5 Neut # (Auto) 5.9 Lymph # (Auto) 2.1 [place] # (Auto) 0.6 Eos # (Auto) 0.3 Baso # (Auto) 0.1 Activated Clotting Time 344 H* Sodium 139 Potassium 4.2 Chloride 106 Carbon Dioxide 24 Anion Gap 13.2 BUN 13 Creatinine 0.88 Estimated Creat Clear 121 Estimated GFR 90 Est GFR ( Amer) 109 Glucose 107 H Calcium 8.7 DS: Diagnosis - Discharge Diagnosis (1) Unstable angina Status: Acute (2) Hypertension Status: Acute (3) CAD (coronary artery disease) Status: Chronic (4) Hyperlipidemia Status: Chronic (5) Ischemic cardiomyopathy Status: Chronic (6) Tobacco use Status: Chronic Discharge Plan - Patient Discharge Instructions ACTIVITY: Continue current activity DIET: continue same diet Patient Instructions: DI for Angina - Follow up Plan Follow up with: Selina Chapman MD [Staff Physician] - 1 week Aayush Bradshaw MD [Staff Physician] - 1 week Disposition: Home, Self-[facility] Medications: Home Medications Medication Instructions Recorded Confirmed Type aspirin 81 mg tablet,delayed 81 mg PO DAILY 06/07/17 06/21/18 History release atorvastatin 40 mg tablet 40 mg PO DAILY 06/07/17 06/21/18 History lisinopril 2.5 mg tablet 2.5 mg PO DAILY 06/07/17 06/21/18 History metoprolol tartrate 25 mg tablet 12.5 mg PO BID #90 tab 04/29/18 06/20/18 Rx ticagrelor 90 mg tablet 90 mg PO BID #180 tab 04/29/18 06/20/18 Rx Spironolactone [Aldactone 25mg 25 mg PO DAILY 06/21/18 06/21/18 History Tab] Prescriptions/Medication Reconciliation: Continue aspirin 81 mg tablet,delayed release 81 mg PO DAILY atorvastatin 40 mg tablet 40 mg PO DAILY lisinopril 2.5 mg tablet 2.5 mg PO DAILY metoprolol tartrate 25 mg tablet 12.5 mg PO BID #90 tab ticagrelor 90 mg tablet 90 mg PO BID #180 tab Spironolactone [Aldactone 25mg Tab] 25 mg PO DAILY
== END 2018-06-22 12:33 | disposition home or self-care (01) ==
LOC: ER 14:18 → 2ND 14:18 → ICU 06-21 13:00 → 2ND 06-21 17:57
PROVIDERS: ADMIT Emergency Medicine; ATTEND Emergency Medicine
CPT/HCPCS: 36415; 71020; 71046; 80048; 84484; 85025; 85347; 92928; 93005; 93306; 93458; 99152; 99153; 99284; C1725; C1769; C1876; C9600; G0378; J1644; Q9967

== ENCOUNTER → 2018-07-08 08:25 | Outpatient (CLI) | payer OTHER, SELFPAY ==
[2018-07-08 09:26] LABS: Alanine Aminotransferase 55 U/L (12-78); Albumin Level 3.6 gm/dL (3.4-5.0); Alkaline Phosphatase 93 U/L (46-116); Aspartate Amino Transferase 22 U/L (15-37); Bilirubin,Direct 0.1 mg/dL (0.0-0.2); Bilirubin,Indirect 0.3 mg/dL (0.0-0.9); Bilirubin,Total 0.4 mg/dL (0.2-1.0); Chol/HDL Ratio 4.6 (1-3.5); Cholesterol 172 mg/dL (140-200); HDL Cholesterol 37 mg/dL (27-67); LDL Cholesterol 83 mg/dL (0-130); Total Protein,Serum 7.4 gm/dL (6.4-8.2); Triglycerides 261 mg/dL (30-200); VLDL Cholesterol 52 mg/dL (0-40)
== END ==
PROVIDERS: Visit Provider Urology
DX: E78.49 Other hyperlipidemia (principal); I11.9 Hypertensive heart disease without heart failure; I25.118 Atherosclerotic heart disease of native coronary artery with other forms of angina pectoris
CPT/HCPCS: 36415; 80061; 80076

== ENCOUNTER → 2018-07-26 08:20 | Outpatient (CLI) | payer OTHER, SELFPAY ==
--- NOTE | 2018-07-26 08:22 | US_ITS ---
US gallbladder HISTORY: Right upper quadrant pain, pancreatitis ITS.REASON: Pancreatis ORDERING PHYSICIAN: Tay Oleary PATIENT AGE: 52 years Comparison: 07/16/2018 FINDINGS: PANCREAS: Unremarkable. No obvious mass or abnormal fluid collection. No ductal dilatation LIVER: No focal liver lesions demonstrated. Homogeneous echogenicity. No intrahepatic biliary ductal dilatation evident RIGHT KIDNEY: 1.4 cm cyst along the superior pole the right kidney GALLBLADDER: No gallstones, gallbladder wall thickening, pericholecystic fluid, or biliary dilatation. IMPRESSION: Negative gallbladder/right upper quadrant ultrasound
== END ==
PROVIDERS: PCP Emergency Medicine; Visit Provider Nurse Practitioner Family
DX: K85.90 Acute pancreatitis without necrosis or infection, unspecified (principal)
CPT/HCPCS: 76705

== ENCOUNTER → 2018-12-26 10:16 | Outpatient (CLI) | payer OTHER, SELFPAY ==
--- NOTE | 2018-12-26 10:20 | XR_ITS ---
XR KUB HISTORY: Follow-up right nephrolithiasis ITS.REASON: KIDNEY STONE ORDERING PHYSICIAN: Martin Blair MD PATIENT AGE: 53 years COMPARISON: None FINDINGS: A 7 mm stone is present at the right ureterovesical junction similar to the previous CT scan of 12/13/2018. Prostate calcifications are noted and there are vascular calcifications as well in the pelvis. IMPRESSION: Persistent right ureterovesical junction stone at approximately 7 mm
== END ==
PROVIDERS: PCP Emergency Medicine; Visit Provider Urology
DX: N20.0 Calculus of kidney (principal)
CPT/HCPCS: 74018

== ENCOUNTER → 2019-01-09 11:28 | Outpatient (CLI) | payer OTHER, SELFPAY ==
--- NOTE | 2019-01-09 11:34 | XR_ITS ---
PROCEDURE: XR KUB CLINICAL INDICATION: Kidney Stones COMPARISON: [id number] CT abdomen pelvis wo con from 12/13/2018 FINDINGS: Unremarkable bowel gas pattern. There are multiple pelvic calcifications most of which are felt to be due to vascular and prostate calcifications. There is a 6 mm calcific density in the right pelvic region which could be due to residual distal ureteral stone. Otherwise negative. IMPRESSION: Possible 6 mm distal ureteral stone on the right Dictated by: Edwar Ayers MD 01/09/2019 17:41 Signed by: <Electronically signed by Edwar Ayers MD in [place]> 01/09/2019 17:41
== END ==
PROVIDERS: PCP Emergency Medicine; Visit Provider Urology
DX: N39.9 Disorder of urinary system, unspecified (principal)
CPT/HCPCS: 74018

== ENCOUNTER → 2020-11-25 12:41 | Outpatient (CLI) | payer OTHER, SELFPAY ==
[2020-11-25 13:43] LABS: Alanine Aminotransferase 38 U/L (12-78); Albumin Level 4.1 g/dl (3.5-5.0); Alkaline Phosphatase 102 U/L (38-126); Aspartate Amino Transferase 32 U/L (17-59); Bilirubin,Direct 0.3 mg/dl (0.0-0.4); Bilirubin,Indirect 0.5 mg/dL (0.0-0.9); Bilirubin,Total 0.8 mg/dl (0.2-1.3); Bilirubin,Unconjugated 0.6 mg/dL (0.0-1.1); Cholesterol 140 mg/dl (140-200); HDL Cholesterol 35 mg/dl (40-60); Total Protein,Serum 7.3 g/dl (6.3-8.2); Triglycerides 147 mg/dl (30-150); VLDL Cholesterol 29 mg/dL (0-40)
[2020-11-25 13:55] LABS: Direct LDL Cholesterol 67.32 mg/dL (100-129)
== END ==
PROVIDERS: Visit Provider Urology
DX: E78.5 Hyperlipidemia, unspecified (principal); I25.10 Atherosclerotic heart disease of native coronary artery without angina pectoris; I10 Essential (primary) hypertension; I25.5 Ischemic cardiomyopathy; Z87.891 Personal history of nicotine dependence
CPT/HCPCS: 36415; 80061; 80076

== ENCOUNTER 2021-06-28 12:25 | Emergency (ER) | payer OTHER, SELFPAY ==
[2021-06-28 12:25] VITALS: BP 144/87; PULSE 80; RESP 18; TEMP 36.9; O2SAT 97; BMI 27.2
--- NOTE | 2021-06-28 12:37 | CT_ITS ---
FINAL REPORT TECHNIQUE: Axial CT images of the face were obtained without contrast. Coronal reformatted images were also obtained. This study was performed with techniques to keep radiation doses as low as reasonably achievable, (ALARA). Individualized dose reduction techniques using automated exposure control or adjustment of mA and/or kV according to the patient''s size were employed. CLINICAL HISTORY: left eye trauma, SWELLING, PAIN FINDINGS: There is a fracture of the medial left orbit floor. There is mild inferior displacement of a fracture fragment. There is no evidence of extraocular muscle entrapment. There is herniation of a small amount of intra orbital fat. No other fractures identified. The globes are intact. There is moderate diffuse sinus mucosal thickening. There is left periorbital soft tissue swelling. IMPRESSION: Medial left orbital floor fracture with mild inferior displacement of a fracture fragment. Herniation of a small amount of intra orbital fat. Reviewed, Interpreted and Dictated by Wesley Hankins III, MD Transcribed by Elsa Saba Authenticated by Wesley Hankins III, MD on 06/28/2021 02:32:16 PM [facility]
--- NOTE | 2021-06-28 12:38 | HMH.EDGENADL ---
ED Disposition Clinical Impression: Left orbit fracture Qualifiers: Encounter type: initial encounter Fracture type: closed Qualified Code(s): S02.85XA - Fracture of orbit, unspecified, initial encounter for closed fracture Left cornea abrasion Qualifiers: Encounter type: initial encounter Qualified Code(s): S05.02XA - Injury of conjunctiva and corneal abrasion without foreign body, left eye, initial encounter Disposition: Home, Self-Care Condition on Discharge: Good Instructions: Corneal Abrasion, DI for Orbital Fracture Additional Instructions: follow up [facility] [place], [place] call [phone] Rodriguez No blowing nose Prescriptions: Amoxicillin/Potassium Clav [Augmentin 875-125 Tablet] 1 tab PO Q12H #20 tab Transmission Status: [facility] Oxycodone HCl/Acetaminophen [Percocet 5/325mg tablet] 1 tab PO Q6H PRN #12 tab PRN Reason: Moderate To Severe Pain Transmission Status: Sent to [facility] Referrals: Asad White MD [Primary Care Provider] - - Critical Care Critical Care Time: No Attestation: On 06/28/21, the high probability of a clinically significant, sudden or life threatening deterioration of the following system(s) required my full and direct attention, intervention and personal management. The time I documented below is in addition to time spent performing reported procedures but includes the following listed in this critical care notation. Medical Decision Making - Medical Records Medical records reviewed: Yes: I reviewed the patient's medical records. - Hugo Inquiry Pt receiving controlled substance: No Vital Signs: 06/28/21 12:25 06/28/21 13:24 06/28/21 14:01 Temperature 98.4 F Temperature Source Oral Pulse Rate 83 76 Pulse Rate [Left Radial] 80 Respiratory Rate 18 Blood Pressure 123/84 148/85 H Blood Pressure [Right Arm] 144/87 H Blood Pressure Mean [Right Arm] 106 Blood Pressure Source [Right Arm] Automatic Cuff Blood Pressure Position [Right Arm] Sitting 02 Sat by Pulse Oximetry 97 96 98 Oxygen Delivery Method Room Air Room Air Room Air Orders (Tests/Meds): ED MEDICATIONS Discontinued Medications Generic Name Dose Route Start Last Admin Trade Name Freq PRN Reason Stop Dose Admin Acetaminophen 1,000 mg 06/28/21 12:37 06/28/21 13:27 Acetaminophen 500mg Tab PO 02/01/22 12:38 1,000 mg ONCE ONE Administration Erythromycin 0.5 gm 06/28/21 12:37 06/28/21 13:27 Erythromycin Base 1 Gm Oint...G. 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 Location: face Radiation: non-radiation Severity: moderate Consistency: constant Relieving factors: other (closing eye) Exacerbating factors: other (light) Associated symptoms: denies other symptoms - Related Data Home Medications Medication Instructions Recorded Confirmed aspirin 81 mg tablet,delayed 81 mg PO DAILY 06/02/20 06/01/21 release Previous Rx's Medication Instructions Recorded Tamsulosin HCl [Flomax 0.4mg 0.4 mg PO HS #10 cap 12/14/18 capsule] Acetaminophen 1,000 mg PO TID PRN #60 tab 07/14/19 lisinopril 2.5 mg tablet See Rx Instructions .ROUTE 03/18/21 .COMPLEX #90 tab metoprolol tartrate 25 mg tablet See Rx Instructions .ROUTE 03/18/21 .COMPLEX #90 tab spironolactone 25 mg tablet See Rx Instructions .ROUTE 03/18/21 .COMPLEX #90 tab ticagrelor 90 mg tablet See Rx Instructions .ROUTE 03/18/21 .COMPLEX #180 tab atorvastatin 40 mg tablet See Rx Instructions .ROUTE 06/15/21 .COMPLEX #30 tab Amoxicillin/Potassium Clav 1 tab PO Q12H #20 tab
[2021-06-28 13:24] VITALS: BP 123/84; PULSE 83; O2SAT 96
--- NOTE | 2021-06-28 13:59 | PC.NURSE ---
Patient sitting up on side of the bed, no needs at this time
[2021-06-28 14:01] VITALS: BP 148/85; PULSE 76; O2SAT 98
--- NOTE | 2021-06-28 15:50 | PC.NURSE ---
MAURA HARPER speaking with [facility] staff for consult for pt
[2021-06-28 16:30] VITALS: BP 148/85; PULSE 64; RESP 20; TEMP 36.9; O2SAT 95
== END 2021-06-28 16:32 | disposition home or self-care (01) ==
PROVIDERS: Emergency Provider Emergency Medicine; PCP Emergency Medicine
DX: S02.32XA Fracture of orbital floor, left side, initial encounter for closed fracture (principal); S02.832A Fracture of medial orbital wall, left side, initial encounter for closed fracture; S05.02XA Injury of conjunctiva and corneal abrasion without foreign body, left eye, initial encounter; W22.8XXA Striking against or struck by other objects, initial encounter; Y93.K9 Activity, other involving animal care; Y92.73 Farm field as the place of occurrence of the external cause
CPT/HCPCS: 70486; 99282

== ENCOUNTER 2022-01-16 09:49 | Emergency (ER) | payer OTHER, SELFPAY ==
[2022-01-16] VITALS (10 sets, daily range): BP systolic 115–143; BP diastolic 73–93; PULSE 59–73; RESP 18; TEMP 36.6; O2SAT 95–99; BMI 26.5
--- NOTE | 2022-01-16 09:56 | XR_ITS ---
FINAL REPORT CLINICAL HISTORY: LT hand pain, no injury FINDINGS: LEFT HAND Three views demonstrate no acute fracture or dislocation. There is mild narrowing of the DIP and PIP joints. The soft tissues are unremarkable. IMPRESSION: No acute process. Reviewed, Interpreted and Dictated by Chandu Velez MD Transcribed by Sarah Webb Authenticated and [facility]
--- NOTE | 2022-01-16 10:02 | PC.NURSE ---
pt ambulatory to radiology at this time with electronic prepress technician
--- NOTE | 2022-01-16 10:55 | HMH.EDGENADL ---
ED Disposition Clinical Impression: Left hand pain Disposition: Home, Self-Care Condition on Discharge: Good Instructions: DI for Acute Pain -- Child Additional Instructions: Off work through January 22. Elevate and ice the left hand as needed for discomfort. As needed for discomfort. Avoid use of the left hand is much as possible until symptoms resolve. Return for worsening redness or other concerns. Prescriptions: predniSONE [Prednisone 20mg Tab] 20 mg PO DAILY 5 Days #5 tab Transmission Status: Received by [facility] Referrals: Asad White MD [Primary Care Provider] - Forms: Work/School Release - Critical Care Critical Care Time: No Attestation: On 01/16/22, the high probability of a clinically significant, sudden or life threatening deterioration of the following system(s) required my full and direct attention, intervention and personal management. The time I documented below is in addition to time spent performing reported procedures but includes the following listed in this critical care notation. Medical Decision Making - Medical Records Medical records reviewed: Yes: I reviewed the patient's medical records. - Hugo Inquiry Pt receiving controlled substance: No Vital Signs: 01/16/22 09:50 01/16/22 10:00 01/16/22 10:30 Temperature 97.9 F Temperature Source Oral Pulse Rate 64 65 Pulse Rate [Left Radial] 73 Respiratory Rate 18 Blood Pressure 122/78 125/73 Blood Pressure [Right Arm] 135/80 Blood Pressure Mean 100 90 Blood Pressure Mean [Right Arm] 98 Blood Pressure Source Blood Pressure Source [Right Arm] Automatic Cuff Blood Pressure Position Blood Pressure Position [Right Arm] Sitting 02 Sat by Pulse Oximetry 98 98 98 Oxygen Delivery Method Room Air 01/16/22 11:00 01/16/22 11:31 01/16/22 12:00 Temperature Temperature Source Pulse Rate 59 L 64 61 Pulse Rate [Left Radial] Respiratory Rate Blood Pressure 117/78 115/79 128/80 Blood Pressure [Right Arm] Blood Pressure Mean 90 91 96 Blood Pressure Mean [Right Arm] Blood Pressure Source Blood Pressure Source [Right Arm] Blood Pressure Position Blood Pressure Position [Right Arm] 02 Sat by Pulse Oximetry 99 98 98 Oxygen Delivery Method Room Air 01/16/22 12:32 01/16/22 13:00 01/16/22 13:14 Temperature 97.9 F Temperature Source Oral Pulse Rate 63 63 59 L Pulse Rate [Left Radial] Respiratory Rate 18 Blood Pressure 143/79 H 129/93 H 128/86 Blood Pressure [Right Arm] Blood Pressure Mean 105 105 Blood Pressure Mean [Right Arm] Blood Pressure Source Automatic Cuff Blood Pressure Source [Right Arm] Blood Pressure Position Sitting Blood Pressure Position [Right Arm] 02 Sat by Pulse Oximetry 98 95 Oxygen Delivery Method Room Air 01/16/22 13:18 Temperature Temperature Source Pulse Rate 63 Pulse Rate [Left Radial] Respiratory Rate Blood Pressure 128/86 Blood Pressure [Right Arm] Blood Pressure Mean 100 Blood Pressure Mean [Right Arm] Blood Pressure Source Blood Pressure Source [Right Arm] Blood Pressure Position Blood Pressure Position [Right Arm] 02 Sat by Pulse Oximetry 99 Oxygen Delivery Method - Lab Data Lab Results 01/16/22 11:49: WBC 8.4, RBC 4.58 L, Hgb 14.7, Hct 47.0, MCV 102.7 H, MCH 32.1 H, MCHC 31.2 L, RDW 13.7, Plt Count 246, MPV 8.2, Neut % (Auto) 67.9, Lymph % (Auto) 21.6, [place] % (Auto) 6.6, Eos % (Auto) 3.0, Baso % (Auto) 0.9, Neut # (Auto) 5.7, Lymph # (Auto) 1.8, [place] # (Auto) 0.6, Eos # (Auto) 0.3, Baso # (Auto) 0.1 01/16/22 11:49: Sodium 137, Potassium 4.1, Chloride 108 H, Carbon Dioxide 25, Anion Gap 8.1, BUN 16, Creatinine 0.70, Estimated Creat Clear 137, Estimated GFR 116, Est GFR ( Amer) 140, Glucose 98, Calcium 8.4, Total Bilirubin 0.2, AST 37, ALT 24, Alkaline Phosphatase 122, Total Protein 6.9, Albumin 3.7, Globulin 3.2, Albumin/Globulin Ratio 1.2 01/16/22 11:49: Uric Acid 6.1
--- NOTE | 2022-01-16 11:56 | PC.NURSE ---
Labs drawn and sent to lab
--- NOTE | 2022-01-16 12:02 | PC.NURSE ---
Patient given an ice pack for his wrist and a warm blanket while we wait on his results. he reports no other needs at this time
--- NOTE | 2022-01-16 12:04 | PC.NURSE ---
updated pt on poc and lab results were are waiting on. no needs at this time
[2022-01-16 12:07] LABS: Basophils # 0.1 K/mm3 (0-0.2); Basophils % 0.9 % (0.1-2.0); Eosinophils # 0.3 K/mm3 (0.0-0.4); Hemoglobin 14.7 g/dL (14.1-18.0); Lymphocytes # 1.8 K/mm3 (0.7-4.5); Lymphocytes % 21.6 % (10-50); Mean Corpuscular HGB Conc 31.2 g/dL (31.8-35.4); Mean Corpuscular Hemoglobin 32.1 pg (27.0-31.2); Mean Corpuscular Volume 102.7 fl (80-94); Mean Platelet Volume 8.2 fl (7.4-10.4); Monocytes # 0.6 K/mm3 (0.1-1.0); Monocytes % 6.6 % (1.7-9.3); Neutrophils # 5.7 K/mm3 (1.8-7.8); Neutrophils % 67.9 % (37.0-80.0); Platelet Count 246 K/mm3 (142-424); Red Blood Count 4.58 M/mm3 (4.60-6.20); Red Cell Distribution Width 13.7 % (11.5-17.5); White Blood Count 8.4 K/mm3 (4.8-10.8)
[2022-01-16 12:29] LABS: Alanine Aminotransferase 24 U/L (12-78); Albumin Level 3.7 g/dl (3.5-5.0); Albumin/Globulin Ratio 1.2 (1.1-1.8); Alkaline Phosphatase 122 U/L (38-126); Anion Gap 8.1 mEq/L (5-15); Aspartate Amino Transferase 37 U/L (17-59); Bilirubin,Total 0.2 mg/dl (0.2-1.3); Blood Urea Nitrogen 16 mg/dl (9-20); Calcium 8.4 mg/dl (8.4-10.2); Carbon Dioxide 25 mmol/L (22.0-30.0); Chloride 108 mmol/L (98-107); Creatinine Clearance Estimated 137 mL/min (50-200); Estimated Glomerular Filt Rate 116 ml/min (>60); GFR (African American) 140 ML/MIN (>60); Globulin 3.2 g/dL (1.3-3.2); Glucose 98 mg/dl (74-100); Potassium 4.1 mmoL/L (3.5-5.1); Sodium 137 mmol/L (136-145); Total Protein,Serum 6.9 g/dl (6.3-8.2); Uric Acid 6.1 mg/dl (3.5-8.5)
== END 2022-01-16 13:15 | disposition home or self-care (01) ==
PROVIDERS: Emergency Provider Emergency Medicine; PCP Emergency Medicine
DX: I11.9 Hypertensive heart disease without heart failure (principal); I50.9 Heart failure, unspecified; M79.642 Pain in left hand; I25.10 Atherosclerotic heart disease of native coronary artery without angina pectoris; I25.2 Old myocardial infarction; E78.5 Hyperlipidemia, unspecified; M19.90 Unspecified osteoarthritis, unspecified site; Z79.52 Long term (current) use of systemic steroids; Z79.82 Long term (current) use of aspirin; Z79.899 Other long term (current) drug therapy; Z88.5 Allergy status to narcotic agent; Z88.6 Allergy status to analgesic agent; Z87.442 Personal history of urinary calculi; Z95.5 Presence of coronary angioplasty implant and graft; Z87.891 Personal history of nicotine dependence; Z82.49 Family history of ischemic heart disease and other diseases of the circulatory system
CPT/HCPCS: 73130; 80053; 84550; 85025; 96372; 99284

== ENCOUNTER 2023-04-06 13:01 | Emergency (ER) | payer SELFPAY ==
[2023-04-06] VITALS (8 sets, daily range): BP systolic 97–136; BP diastolic 66–80; PULSE 57–68; RESP 16–18; TEMP 36.5–36.6; O2SAT 97–98; BMI 25.8
--- NOTE | 2023-04-06 13:19 | XR_ITS ---
FINAL REPORT CLINICAL HISTORY: medial mal pain after sprain FINDINGS: AP, oblique, and lateral views of the left ankle were obtained. There is no prior exam for comparison. There is no fracture or dislocation. The ankle mortise is intact. Soft tissues are normal. IMPRESSION: No acute osseous abnormality of the left ankle. Reviewed, Interpreted and Dictated by Raquel Pedromo MD Transcribed by Tram Kitchen Authenticated and [facility]
--- NOTE | 2023-04-06 13:19 | XR_ITS ---
FINAL REPORT CLINICAL HISTORY: medial mal pain after sprain FINDINGS: AP, oblique and lateral views of the left foot were obtained. There is no prior exam for comparison. There is no acute fracture or dislocation. The joint spaces are preserved. Soft tissues are normal. IMPRESSION: No acute osseous abnormality of the left foot. Reviewed, Interpreted and Dictated by Raquel Perdomo MD Transcribed by Tram Kitchen Authenticated and [facility]
--- NOTE | 2023-04-06 13:19 | XR_ITS ---
FINAL REPORT CLINICAL HISTORY: left calc pain and arch pain after step wrong FINDINGS: Axial and lateral views of the left calcaneus were obtained. There is no prior exam for comparison. There is no acute fracture or other acute osseous abnormality. The joint spaces are preserved. The soft tissues are unremarkable. IMPRESSION: No acute osseous abnormality of the left calcaneus. Reviewed, Interpreted and Dictated by Raquel Perdomo MD Transcribed by Tram Kitchen Authenticated and [facility]
--- NOTE | 2023-04-06 13:20 | HMH.EDGENADL ---
Discharge Plan Disposition Patient Disposition: Home, Self-Care Condition: Good Prescriptions Prescriptions: New naproxen 500 mg tablet 500 mg PO BID Qty: 20 0RF No Action aspirin [Adult Low Dose Aspirin] 81 mg tablet,delayed release (DR/EC) 81 mg PO DAILY Brilinta 90 mg tablet See Rx Instructions .ROUTE .COMPLEX Qty: 180 2RF Dose Instruction: TAKE ONE TABLET BY MOUTH TWICE DAILY FOR HEART Rx Instructions: TAKE ONE TABLET BY MOUTH TWICE DAILY FOR HEART metoprolol tartrate 25 mg tablet See Rx Instructions .ROUTE .COMPLEX Qty: 90 2RF Dose Instruction: TAKE 1/2 TABLET BY MOUTH TWICE DAILY FOR BLOOD PRESSURE Rx Instructions: TAKE 1/2 TABLET BY MOUTH TWICE DAILY FOR BLOOD PRESSURE spironolactone 25 mg tablet See Rx Instructions .ROUTE .COMPLEX Qty: 90 2RF Dose Instruction: TAKE ONE TABLET BY MOUTH EVERY DAY Rx Instructions: TAKE ONE TABLET BY MOUTH EVERY DAY lisinopril 2.5 mg tablet See Rx Instructions .ROUTE .COMPLEX Qty: 90 2RF Dose Instruction: TAKE ONE TABLET BY MOUTH EVERY DAY Rx Instructions: TAKE ONE TABLET BY MOUTH EVERY DAY atorvastatin 40 mg tablet 40 mg PO DAILY Qty: 90 3RF prednisone 20 MG tablet 20 mg PO DAILY 5 Days Qty: 5 0RF Referrals Follow up/Referrals: Pascual Adame DO [Staff Physician] - See instructions Asad White MD [Primary Care Provider] - See instructions Activity Restrictions/Add. Instructions Additional Instructions/Restrictions: You were evaluated in the emergency department today. At this time, your x-rays do not demonstrate any fractures. You likely sprained your ankle. Take Tylenol and ibuprofen at home as needed for pain. Rest, keep your ankle elevated, and ice it to reduce swelling. Follow-up with orthopedics if your pain continues. I also recommend follow-up with your primary care provider. Return to the emergency department for new or worsening symptoms. Clinical Impressions Clinical Impression: Acute left ankle pain Instructions Patient Instructions: DI for Acute Pain -- Adult, DI for Ankle Pain Discharge ED Provider: Araceli Kessler General Adult HPI <Martin Coelho MD - Last Filed: 04/06/23 15:04> General Chief complaint: PAIN Stated complaint: AO11/8@work, pain in Lt ankle Time Seen by Provider: 04/06/23 13:03 Mode of Arrival: Ambulatory Source of Information: Patient Limitations: No Limitations Description of Symptoms (Recalled from ER Triage Doc. by RN): Patient states he was climbing out of a barn 2 days ago and twisted his left ankle. He states pain and swelling have not gotten any better. Upon assessment some swelling noted around ankle. History of Present Illness HPI narrative: 57-year-old male history of hypertension, hyperlipidemia, chronic tobacco use, numerous [place] status post stenting currently on aspirin and Brilinta presenting with left ankle injury. Patient states that 1 day prior to arrival, he was stepping down off a ladder in the barn. Stepped down incorrectly, had immediate pain in his left heel. Has been unable to bear meaningful weight weight since that time. Has taken Tylenol Motrin with minimal relief. Related Data Home Medications Medication Instructions Recorded Confirmed aspirin 81 mg tablet,delayed 81 mg PO DAILY 06/02/20 11/30/21 release (Adult Low Dose Aspirin) Previous Rx's Medication Instructions Recorded ticagrelor 90 mg tablet (Brilinta) See Rx Instructions .Route 03/18/21 .COMPLEX #180 tabs prednisone 20 mg tablet 20 mg PO DAILY 5 days #5 tabs 01/16/22 lisinopril 2.5 mg tablet See Rx Instructions .Route 10/24/22 .COMPLEX #90 tabs metoprolol tartrate 25 mg tablet See Rx Instructions .Route 10/24/22 .COMPLEX #90 tabs spironolactone 25 mg tablet See Rx Instructions .Route 10/24/22 .COMPLEX #90 tabs atorvastatin 40 mg tablet 40 mg PO DAILY #90 tabs 01/23/23 naproxen 500 mg tablet 500 mg PO BID #20 tabs 04/06/23
--- NOTE | 2023-04-06 14:49 | PC.NURSE ---
PT UP TO BR
--- NOTE | 2023-04-06 16:39 | PC.NURSE ---
DR MUÑOZ AT BEDSIDE TO UPDATE PT AND FAMILY
== END 2023-04-06 16:52 | disposition home or self-care (01) ==
PROVIDERS: Emergency Provider Emergency Medicine; PCP Emergency Medicine
DX: S93.402A Sprain of unspecified ligament of left ankle, initial encounter (principal); I11.9 Hypertensive heart disease without heart failure; E78.5 Hyperlipidemia, unspecified; F17.210 Nicotine dependence, cigarettes, uncomplicated; I25.10 Atherosclerotic heart disease of native coronary artery without angina pectoris; X50.1XXA Overexertion from prolonged static or awkward postures, initial encounter; Z95.5 Presence of coronary angioplasty implant and graft
CPT/HCPCS: 73610; 73630; 73650; 96372; 96374; 99284

== ENCOUNTER 2025-01-08 09:26 | Outpatient (CLI) | payer MEDICAID, SELFPAY ==
[2025-01-08 10:12] LABS: Hematocrit 43.4 % (42.0-52.0); Hemoglobin 14.9 g/dL (14.1-18.0); Immature Granulocytes % 0.4 %; Mean Corpuscular HGB Conc 34.3 g/dL (31.8-35.4); Mean Corpuscular Hemoglobin 32.5 pg (27.0-31.2); Mean Corpuscular Volume 94.6 fl (80-94); Nucleated Red Blood Cells % 0 %; Platelet Count 235 K/mm3 (142-424); Red Blood Count 4.59 M/mm3 (4.60-6.20); Red Cell Distribution Width-SD 47.7 fL; White Blood Count 11.2 K/mm3 (4.8-10.8)
[2025-01-08 11:26] LABS: Alanine Aminotransferase 25 U/L (12-78); Albumin Level 3.9 g/dl (3.5-5.0); Alkaline Phosphatase 85 U/L (38-126); Anion Gap 10.7 mEq/L (5-15); Aspartate Amino Transferase 26 U/L (17-59); Bilirubin,Direct 0.2 mg/dl (0.0-0.4); Bilirubin,Indirect 0.4 mg/dL (0.0-0.9); Bilirubin,Total 0.6 mg/dl (0.2-1.3); Bilirubin,Unconjugated 0.4 mg/dL (0.0-1.1); Blood Urea Nitrogen 15 mg/dl (9-20); Calcium 9.1 mg/dl (8.4-10.2); Carbon Dioxide 26 mmol/L (22.0-30.0); Chloride 103 mmol/L (98-107); Cholesterol 132 mg/dl (140-200); Creatinine,Serum 0.80 mg/dl (0.66-1.25); Estimated Glomerular Filt Rate 98 ml/min (>60); GFR (African American) 119 ML/MIN (>60); Glucose 96 mg/dl (74-100); HDL Cholesterol 42 mg/dl (40-60); Magnesium 1.8 mg/dl (1.6-2.3); Potassium 4.7 mmoL/L (3.5-5.1); Sodium 135 mmol/L (136-145); Total Protein,Serum 6.5 g/dl (6.3-8.2); Triglycerides 126 mg/dl (30-150)
[2025-01-08 11:42] LABS: Free T4 (Free Thyroxine) 1.01 ng/dl (0.78-2.19)
[2025-01-08 11:57] LABS: Thyroid Stimulating Hormone 0.92 uIU/mL (0.465-4.68)
== END 2025-01-08 23:59 | disposition home or self-care (01) ==
LOC: LAB 09:27
PROVIDERS: Visit Provider Nurse Practitioner Family
DX: I25.118 Atherosclerotic heart disease of native coronary artery with other forms of angina pectoris (principal); I10 Essential (primary) hypertension; E78.2 Mixed hyperlipidemia
CPT/HCPCS: 36415; 80048; 80061; 80076; 83735; 84439; 84443; 85025